=== PATIENT | female | born 1960 | race Caucasian/White ===

== ENCOUNTER 2017-05-28 17:49 | Inpatient (IN) | payer MEDICAID ==
[~2017-05-28] VITALS: Ht 160 cm; Wt 81.6 kg
[~2017-05-28 17:49] MED LIST: ASPI-1047 PO; LISI10TA5 PO; METF1000 PO; NOR10 PO
[2017-05-28 18:04] VITALS: BP_SYST 166
[2017-05-28] MEDS ORDERED: DIPHENHYDRAMINE INJ 50 MG/ML VIAL IVP ONE (18:45)
[2017-05-28] MEDS ORDERED: ONDANSETRON HCL 4 MG/2 ML VIAL IVP ONE ×2 (18:45→21:45)
[2017-05-28 19:20] LABS: HEMATOCRIT 47.9 % (36-48); HEMOGLOBIN 15.6 g/dL (12.0-16.0); MEAN CORPUSCULAR HEMOGLOBIN 28 pg (27-31); MEAN CORPUSCULAR HGB CONC 32 % (32-36); MEAN CORPUSCULAR VOLUME 86 fL (79.0-98.0); PLATELET COUNT (AUTO) 294 K/uL (130-430); RED BLOOD CELL COUNT(AUTO) 5.59 MIL/uL (4.2-6.2); RED CELL DISTRIBUTION WIDTH 12.1 % (9.0-15.0); WHITE BLOOD COUNT (AUTO) 15.2 K/uL (4.8-10.8)
[2017-05-28 19:22] LABS: ANION GAP 7 (5-15); CALCIUM 9.2 mg/dL (8.4-11.0); CHLORIDE 102 mmol/L (98-107); CREATININE 0.98 mg/dL (0.55-1.30); GLUCOSE 307 mg/dL (70-99); SODIUM SERUM 138 mmol/L (136-145); UREA NITROGEN, BLOOD 13 mg/dL (8-21)
[2017-05-28 19:25] LABS: GFR AFRICAN AMERICAN 75 mL/min (>90)
[2017-05-28 19:26] LABS: ALANINE AMINOTRANSFERASE 99 U/L (12-78); ALBUMIN 3.7 g/dL (3.4-4.8); ASPARTATE AMINOTRANSFERASE 74 U/L (10-37); LIPASE 173 U/L (73-393); TOTAL BILIRUBIN 0.9 mg/dL (0.0-1.0)
[2017-05-28 19:27] LABS: ALCOHOL, BLOOD < 3 mg/dL (<10)
[2017-05-28 19:28] LABS: INR 0.9 (0.8-1.2); PROTHROMBIN TIME 10.3 SECS (9.5-12.5)
[2017-05-28 19:53] LABS: BAND % (MANUAL) 10 % (0-6); BASOPHILS % (MANUAL) 0 % (0-2); EOSINOPHILS % (MANUAL) 4 % (0-7); LYMPHOCYTES % (MANUAL) 5 % (20-46); MONOCYTES % (MANUAL) 3 % (0-11)
[2017-05-28] MEDS ORDERED: hydrALAZINE HCL 20 MG/ML VIAL IVP ONE (21:45)
[2017-05-28] MEDS ORDERED: NACL 0.9% 1,000 ML IV ONE ×2 (21:45→23:45)
[2017-05-28] MEDS ORDERED: METOCLOPRAMIDE HCL 10 MG/2 ML VIAL IVP ONE (23:15)
[2017-05-28] MEDS ORDERED: MORPHINE 4 MG/ML INJ. SYRINGE IVP ONE (23:15)
[2017-05-28] MEDS ORDERED: CIPROFLOXACIN LACT 400 MG/D5W 200 ML IV ONE (23:45)
[2017-05-29] VITALS (7 sets, daily range): BP systolic 123–169
[2017-05-29 00:03] LABS: BILIRUBIN,URINE 1+ (NEGATIVE); BLOOD, URINE NEGATIVE (NEGATIVE); CLARITY/URINE HAZY (CLEAR); COLOR,URINE YELLOW (YELLOW); GLUCOSE,URINE 3+ (NEGATIVE); KETONES,URINE TRACE (NEGATIVE); LEUKOCYTE ESTERASE ,URINE 1+ (NEGATIVE); NITRITE, URINE NEGATIVE (NEGATIVE); PROTEIN URINE 1+ (NEGATIVE)
[2017-05-29 00:09] LABS: BACTERIA,URINE MANY /HPF (None Seen); RBC,URINE 0-3 /HPF (0-3); WBC,URINE 20-50 /HPF (0-3)
[2017-05-29 00:24] LABS: BARBITURATE, URINE NEGATIVE (NEG <=200)
[2017-05-29 00:25] LABS: METHAMPHETAMINES SCREEN,URINE POSITIVE (NEG <=500); URINE AMPHETAMINE POSITIVE (NEG <=500); URINE METHADONE NEGATIVE (NEG <=200)
[2017-05-29 00:26] LABS: BENZODIAZEPINE, URINE NEGATIVE (NEG <=150); CANNABINOID, URINE NEGATIVE (NEG <=50); COCAINE, URINE NEGATIVE (NEG <=150); OPIATE, URINE POSITIVE (NEG <=100); PHENCYCLIDINE SCREEN,URINE NEGATIVE (NEG <=25); UR TRICYCLIC ANTIDEPRESSANTS NEGATIVE (NEG <=300); URINE OXYCODONE SCREEN NEGATIVE (NEG <=100); URINE PROPOXYPHENE SCREEN NEGATIVE (NEG <=300)
[2017-05-29] MEDS ORDERED: ONDANSETRON HCL 4 MG/2 ML VIAL IVP PRN (00:30)
[2017-05-29] MEDS: NACL 0.9% 1,000 ML IV SCH ×2 (01:40→06:10)
[2017-05-29] MEDS: METOCLOPRAMIDE HCL 10 MG/2 ML VIAL IVP SCH ×4 (05:02→23:40)
[2017-05-29] MEDS: INSULIN REGULAR, HUMAN 100 UNITS/ML, 10 ML VIAL (novoLIN R) SUBCUT PRN ×4 (06:14→20:38)
[2017-05-29] MEDS: metFORMIN HCL 500 MG TABLET PO SCH ×2 (09:34→17:16)
[2017-05-29] MEDS: LISINOPRIL 10 MG TABLET (PRINIVIL) PO SCH ×2 (09:34→20:35)
[2017-05-29] MEDS: FAMOTIDINE PF 20 MG/2 ML VIAL IVP SCH ×2 (09:34→20:34)
[2017-05-29] MEDS ORDERED: cloNIDine HCL 0.2 MG TABLET PO PRN (19:30)
[2017-05-30] VITALS: BP_SYST 138
[2017-05-30 04:00] VITALS: BP_SYST 132
[2017-05-30] MEDS: METOCLOPRAMIDE HCL 10 MG/2 ML VIAL IVP SCH (05:09)
[2017-05-30] MEDS: INSULIN REGULAR, HUMAN 100 UNITS/ML, 10 ML VIAL (novoLIN R) SUBCUT PRN (06:22)
[2017-05-30 07:48] LABS: EOSINOPHILS # (AUTO) 0.1 K/uL (0.0-0.4); MEAN CORPUSCULAR HGB CONC 33 % (32-36)
[2017-05-30 08:03] VITALS: BP_SYST 138
[2017-05-30 08:07] LABS: HEMOGLOBIN 14.3 g/dL (12.0-16.0); RED BLOOD CELL COUNT(AUTO) 5.05 MIL/uL (4.2-6.2)
[2017-05-30 08:08] LABS: BASOPHILS % (AUTO) 0.2 % (0.0-2.0); EOSINOPHILS % (AUTO) 0.7 % (0.0-4.0); HEMATOCRIT 43.4 % (36-48); LYMPHOCYTES # (AUTO) 2.5 K/uL (1.0-5.5); LYMPHOCYTES % (AUTO) 20.7 % (20.5-51.5); MEAN CORPUSCULAR HEMOGLOBIN 28 pg (27-31); MEAN CORPUSCULAR VOLUME 86 fL (79.0-98.0); MONOCYTES % (AUTO) 9.1 % (1.7-9.3); NEUTROPHILS # (AUTO) 8.4 K/uL (1.8-7.7); NEUTROPHILS % (AUTO) 69.3 % (40.0-70.0); PLATELET COUNT (AUTO) 253 K/uL (130-430)
[2017-05-30 08:09] LABS: MONOCYTES # (AUTO) 1.1 K/uL (0.0-1.0); WHITE BLOOD COUNT (AUTO) 12.1 K/uL (4.8-10.8)
[2017-05-30 08:10] LABS: ALBUMIN 2.8 g/dL (3.4-4.8); CALCIUM 8.8 mg/dL (8.4-11.0); CREATININE 0.71 mg/dL (0.55-1.30); TOTAL BILIRUBIN 0.5 mg/dL (0.0-1.0)
[2017-05-30] MEDS: metFORMIN HCL 500 MG TABLET PO SCH (08:20)
[2017-05-30] MEDS: FAMOTIDINE PF 20 MG/2 ML VIAL IVP SCH (08:21)
[2017-05-30] MEDS: LISINOPRIL 10 MG TABLET (PRINIVIL) PO SCH (08:21)
== END 2017-05-30 09:43 | disposition left against medical advice (07) | DRG 463 ==
LOC: SED 17:49 → SMU 05-29 00:20
PROVIDERS: ADMIT Internal Medicine; ATTEND Internal Medicine
DX: N39.0 Urinary tract infection, site not specified (principal); I10 Essential (primary) hypertension; F12.10 Cannabis abuse, uncomplicated; Z53.21 Procedure and treatment not carried out due to patient leaving prior to being seen by health care provider; F15.10 Other stimulant abuse, uncomplicated; E11.9 Type 2 diabetes mellitus without complications; F17.210 Nicotine dependence, cigarettes, uncomplicated; E87.6 Hypokalemia; K52.9 Noninfective gastroenteritis and colitis, unspecified; F19.10 Other psychoactive substance abuse, uncomplicated; I70.90 Unspecified atherosclerosis; E66.9 Obesity, unspecified; Z68.31 Body mass index [BMI] 31.0-31.9, adult; Z90.49 Acquired absence of other specified parts of digestive tract; Z88.0 Allergy status to penicillin; Z71.6 Tobacco abuse counseling
CPT/HCPCS: 36415; 71010; 80053; 80307; 81000-TC; 82962; 83605; 83690-TC; 85007; 85025; 85027; 85610-TC; 87040-TC; 87086; 93005; 96365; 96375; 96376; 99285; G0482; J0360; J0744; J1200; J1815; J2270; J2405; J2765; J3490; J7030

== ENCOUNTER 2018-11-08 10:36 | Inpatient (IN) | payer MEDICAID ==
[~2018-11-08] VITALS: Ht 160 cm; Wt 88.0 kg
[2018-11-08 10:36] VITALS: BP_SYST 161
[~2018-11-08 10:36] MED LIST changes: -ASPI-1047 PO; -NOR10 PO
[2018-11-08] MEDS ORDERED: NACL 0.9% 1,000 ML IV ONE (10:45)
[2018-11-08] MEDS ORDERED: INSU100I26 SQ (10:55)
[2018-11-08] MEDS ORDERED: LIP20 PO (10:55)
[2018-11-08] MEDS ORDERED: CLOP300T2 PO (10:55)
[2018-11-08 11:23] LABS: CALCIUM 8.7 mg/dL (8.4-11.0); CREATININE 1.14 mg/dL (0.55-1.30)
[2018-11-08] MEDS ORDERED: hydrALAZINE HCL 20 MG/ML VIAL IVP ONE (11:30)
[2018-11-08 11:32] LABS: ALBUMIN 2.7 g/dL (3.4-4.8); TOTAL BILIRUBIN 1.2 mg/dL (0.0-1.0)
[2018-11-08 11:35] LABS: BASOPHILS # (AUTO) 0.1 K/uL (0.0-0.2); BASOPHILS % (AUTO) 0.9 % (0.0-2.0); EOSINOPHILS # (AUTO) 0.1 K/uL (0.0-0.4); EOSINOPHILS % (AUTO) 1.1 % (0.0-4.0); HEMATOCRIT 38.7 % (36-48); HEMOGLOBIN 12.3 g/dL (12.0-16.0); LYMPHOCYTES # (AUTO) 3.9 K/uL (1.0-5.5); LYMPHOCYTES % (AUTO) 31.8 % (20.5-51.5); MEAN CORPUSCULAR HEMOGLOBIN 29 pg (27-31); MEAN CORPUSCULAR HGB CONC 32 % (32-36); MEAN CORPUSCULAR VOLUME 91 fL (79.0-98.0); MONOCYTES # (AUTO) 0.8 K/uL (0.0-1.0); MONOCYTES % (AUTO) 6.7 % (1.7-9.3); NEUTROPHILS # (AUTO) 7.3 K/uL (1.8-7.7); NEUTROPHILS % (AUTO) 59.5 % (40.0-70.0); PLATELET COUNT (AUTO) 440 K/uL (130-430); RED BLOOD CELL COUNT(AUTO) 4.27 MIL/uL (4.2-6.2); RED CELL DISTRIBUTION WIDTH 15.8 % (9.0-15.0); WHITE BLOOD COUNT (AUTO) 12.2 K/uL (4.8-10.8)
[2018-11-08] MEDS ORDERED: IOHEXOL 350 mgI/mL, 150 ML INFUS..BTL IV ONE (11:42)
[2018-11-08 13:25] LABS: BILIRUBIN,URINE NEGATIVE (NEGATIVE); BLOOD, URINE 2+ (NEGATIVE); CLARITY/URINE CLOUDY (CLEAR); COLOR,URINE YELLOW (YELLOW); GLUCOSE,URINE NEGATIVE (NEGATIVE); KETONES,URINE NEGATIVE (NEGATIVE); LEUKOCYTE ESTERASE ,URINE NEGATIVE (NEGATIVE); NITRITE, URINE NEGATIVE (NEGATIVE); PH,URINE 5.5 (5.0-8.0); PROTEIN URINE NEGATIVE (NEGATIVE); UROBILINOGEN,URINE 0.2 (0.2-1.0)
[2018-11-08 13:41] VITALS: BP_SYST 150
[2018-11-08 13:50] LABS: BACTERIA,URINE MANY /HPF (None Seen); MUCUS,URINE None Seen /LPF (None Seen); WBC,URINE 0-3 /HPF (0-3); YEAST,URINE None Seen /HPF (None Seen)
[2018-11-08 13:52] LABS: BARBITURATE, URINE NEGATIVE (NEG <=200); BENZODIAZEPINE, URINE NEGATIVE (NEG <=150); COCAINE, URINE NEGATIVE (NEG <=150); METHAMPHETAMINES SCREEN,URINE NEGATIVE (NEG <=500); URINE AMPHETAMINE NEGATIVE (NEG <=500); URINE METHADONE NEGATIVE (NEG <=200)
[2018-11-08 13:53] LABS: CANNABINOID, URINE NEGATIVE (NEG <=50); OPIATE, URINE NEGATIVE (NEG <=100); PHENCYCLIDINE SCREEN,URINE NEGATIVE (NEG <=25); UR TRICYCLIC ANTIDEPRESSANTS NEGATIVE (NEG <=300); URINE OXYCODONE SCREEN NEGATIVE (NEG <=100); URINE PROPOXYPHENE SCREEN NEGATIVE (NEG <=300)
[2018-11-08] MEDS ORDERED: APIX5TAB4 PO (14:06)
[2018-11-08] MEDS ORDERED: ATORVASTATIN 20 MG TABLET PO ONE (14:15)
[2018-11-08] MEDS ORDERED: NITROGLYCERIN 0.4 MG TAB.SUBL SL PRN (14:30)
[2018-11-08] MEDS ORDERED: LevALBUTEROL HCL 1.25 MG/0.5 ML *CONC.* VIAL.NEB (XOPENEX CONC.) INH PRN (14:30)
[2018-11-08 15:12] VITALS: BP_SYST 150
[2018-11-08] MEDS: metFORMIN HCL 500 MG TABLET PO SCH (17:24)
[2018-11-08] MEDS: INSULIN REGULAR, HUMAN 100 UNITS/ML, 10 ML VIAL (novoLIN R) SUBCUT PRN ×2 (17:30→21:48)
[2018-11-08] MEDS ORDERED: FUROSEMIDE 40 MG/4 ML VIAL IVP ONE (18:45)
[2018-11-08] MEDS: LevALBUTEROL HCL 1.25 MG/0.5 ML *CONC.* VIAL.NEB (XOPENEX CONC.) INH SCH (19:39)
[2018-11-08 20:00] VITALS: BP_SYST 103
[2018-11-08] MEDS: LISINOPRIL 10 MG TABLET (PRINIVIL) PO SCH (21:00)
[2018-11-08 21:28] VITALS: BP_SYST 128
[2018-11-08] MEDS: APIXABAN 2.5 MG TABLET PO SCH (21:48)
[2018-11-08] MEDS: CARVEDILOL 12.5 MG TABLET (COREG) PO SCH (21:53)
[2018-11-09] MEDS: SPIRONOLACTONE 25 MG TABLET (ALDACTONE) PO SCH ×3 (00:19→20:32)
[2018-11-09 00:24] VITALS: BP_SYST 144
[2018-11-09] MEDS: LevALBUTEROL HCL 1.25 MG/0.5 ML *CONC.* VIAL.NEB (XOPENEX CONC.) INH SCH ×4 (01:00→19:41)
[2018-11-09 07:25] LABS: CALCIUM 8.2 mg/dL (8.4-11.0); CREATININE 1.1 mg/dL (0.55-1.30); POTASSIUM 3.5 mmol/L (3.5-5.1)
[2018-11-09 07:36] LABS: BASOPHILS # (AUTO) 0.1 K/uL (0.0-0.2); EOSINOPHILS # (AUTO) 0.3 K/uL (0.0-0.4); EOSINOPHILS % (AUTO) 2.7 % (0.0-4.0); HEMATOCRIT 35.9 % (36-48); HEMOGLOBIN 11.6 g/dL (12.0-16.0); LYMPHOCYTES # (AUTO) 2.9 K/uL (1.0-5.5); LYMPHOCYTES % (AUTO) 26.3 % (20.5-51.5); MEAN CORPUSCULAR HEMOGLOBIN 29 pg (27-31); MEAN CORPUSCULAR HGB CONC 32 % (32-36); MEAN CORPUSCULAR VOLUME 91 fL (79.0-98.0); MONOCYTES # (AUTO) 0.8 K/uL (0.0-1.0); MONOCYTES % (AUTO) 7.6 % (1.7-9.3); NEUTROPHILS % (AUTO) 62.4 % (40.0-70.0); PLATELET COUNT (AUTO) 382 K/uL (130-430); RED BLOOD CELL COUNT(AUTO) 3.97 MIL/uL (4.2-6.2); RED CELL DISTRIBUTION WIDTH 15.6 % (9.0-15.0); WHITE BLOOD COUNT (AUTO) 11.1 K/uL (4.8-10.8)
[2018-11-09 07:43] LABS: ALBUMIN 2.5 g/dL (3.4-4.8); THYROID STIMULATING HORMONE 5.2 uIu/mL (0.36-3.74); TOTAL BILIRUBIN 0.9 mg/dL (0.0-1.0)
[2018-11-09 08:00] VITALS: BP_SYST 140
[2018-11-09 08:19] LABS: CKMB RELATIVE INDEX 0.6 (0.0-2.9)
[2018-11-09] MEDS ORDERED: POTASSIUM CHLORIDE 10 MEQ TAB.PRT.SR PO SCH (09:00)
[2018-11-09] MEDS: CLOPIDOGREL BISULFATE 75 MG TABLET PO SCH (09:07)
[2018-11-09] MEDS: metFORMIN HCL 500 MG TABLET PO SCH ×2 (09:08→18:02)
[2018-11-09] MEDS: ATORVASTATIN 20 MG TABLET PO SCH (09:08)
[2018-11-09] MEDS: LISINOPRIL 10 MG TABLET (PRINIVIL) PO SCH ×2 (09:09→20:32)
[2018-11-09] MEDS: APIXABAN 2.5 MG TABLET PO SCH ×2 (09:11→20:30)
[2018-11-09] MEDS: CARVEDILOL 12.5 MG TABLET (COREG) PO SCH ×2 (09:12→20:32)
[2018-11-09] MEDS: FUROSEMIDE 40 MG/4 ML VIAL IVP SCH ×2 (09:13→20:33)
[2018-11-09] MEDS: INSULIN REGULAR, HUMAN 100 UNITS/ML, 10 ML VIAL (novoLIN R) SUBCUT PRN (11:14)
[2018-11-09 13:45] VITALS: BP_SYST 145
[2018-11-09 16:38] VITALS: BP_SYST 102
[2018-11-09 20:10] VITALS: BP_SYST 110
[2018-11-09] MEDS ORDERED: ACETAMINOPHEN 325 MG TABLET PO PRN (20:45)
[2018-11-10] MEDS: LevALBUTEROL HCL 1.25 MG/0.5 ML *CONC.* VIAL.NEB (XOPENEX CONC.) INH SCH ×4 (01:00→19:44)
[2018-11-10 01:39] VITALS: BP_SYST 134
[2018-11-10 06:53] LABS: ALBUMIN 2.6 g/dL (3.4-4.8); CALCIUM 8.2 mg/dL (8.4-11.0); POTASSIUM 3.1 mmol/L (3.5-5.1); TOTAL BILIRUBIN 0.8 mg/dL (0.0-1.0)
[2018-11-10 08:00] VITALS: BP_SYST 123
[2018-11-10] MEDS: LISINOPRIL 10 MG TABLET (PRINIVIL) PO SCH ×2 (09:53→22:38)
[2018-11-10] MEDS: ATORVASTATIN 20 MG TABLET PO SCH (09:53)
[2018-11-10] MEDS: APIXABAN 2.5 MG TABLET PO SCH ×2 (09:54→22:41)
[2018-11-10] MEDS: CARVEDILOL 12.5 MG TABLET (COREG) PO SCH ×2 (09:55→22:38)
[2018-11-10] MEDS: metFORMIN HCL 500 MG TABLET PO SCH ×2 (09:55→18:15)
[2018-11-10] MEDS: CLOPIDOGREL BISULFATE 75 MG TABLET PO SCH (09:55)
[2018-11-10] MEDS: SPIRONOLACTONE 25 MG TABLET (ALDACTONE) PO SCH ×2 (09:56→22:37)
[2018-11-10] MEDS: FUROSEMIDE 40 MG/4 ML VIAL IVP SCH ×2 (09:57→22:42)
[2018-11-10] MEDS ORDERED: POTASSIUM CHLORIDE 20 MEQ/PKT PACKET PO ONE (10:00)
[2018-11-10] MEDS: INSULIN REGULAR, HUMAN 100 UNITS/ML, 10 ML VIAL (novoLIN R) SUBCUT PRN (11:42)
[2018-11-10 12:49] VITALS: BP_SYST 117
[2018-11-10 16:37] VITALS: BP_SYST 144
[2018-11-10 20:00] VITALS: BP_SYST 142
[2018-11-10] MEDS: POTASSIUM CHLORIDE 20 MEQ/PKT PACKET PO SCH (22:39)
[2018-11-11] MEDS: LevALBUTEROL HCL 1.25 MG/0.5 ML *CONC.* VIAL.NEB (XOPENEX CONC.) INH SCH ×3 (01:00→14:19)
[2018-11-11] MEDS: INSULIN REGULAR, HUMAN 100 UNITS/ML, 10 ML VIAL (novoLIN R) SUBCUT PRN (06:23)
[2018-11-11 06:45] LABS: CALCIUM 8.4 mg/dL (8.4-11.0); CREATININE 1.2 mg/dL (0.55-1.30); POTASSIUM 3.1 mmol/L (3.5-5.1)
[2018-11-11 06:52] LABS: ALBUMIN 2.6 g/dL (3.4-4.8); TOTAL BILIRUBIN 0.9 mg/dL (0.0-1.0)
[2018-11-11 08:00] VITALS: BP_SYST 118
[2018-11-11] MEDS: POTASSIUM CHLORIDE 20 MEQ/PKT PACKET PO SCH (08:22)
[2018-11-11] MEDS: metFORMIN HCL 500 MG TABLET PO SCH (08:23)
[2018-11-11] MEDS: APIXABAN 2.5 MG TABLET PO SCH (08:24)
[2018-11-11] MEDS: ATORVASTATIN 20 MG TABLET PO SCH (08:24)
[2018-11-11] MEDS: LISINOPRIL 10 MG TABLET (PRINIVIL) PO SCH (08:24)
[2018-11-11] MEDS: CARVEDILOL 12.5 MG TABLET (COREG) PO SCH (08:25)
[2018-11-11] MEDS: CLOPIDOGREL BISULFATE 75 MG TABLET PO SCH (08:25)
[2018-11-11] MEDS: FUROSEMIDE 40 MG/4 ML VIAL IVP SCH (08:25)
[2018-11-11] MEDS: SPIRONOLACTONE 25 MG TABLET (ALDACTONE) PO SCH (08:25)
[2018-11-11] MEDS ORDERED: METOLAZONE 2.5 MG TABLET PO ONE (10:30)
[2018-11-11 12:02] VITALS: BP_SYST 122
[2018-11-11 16:02] VITALS: BP_SYST 128
[2018-11-11] MEDS ORDERED: SPIRONOLACTONE 25 MG TABLET (ALDACTONE) PO SCH (21:00)
[2018-11-11] MEDS ORDERED: POTASSIUM CHLORIDE 20 MEQ/PKT PACKET PO SCH (21:00)
== END 2018-11-11 16:30 | disposition left against medical advice (07) | DRG 194 ==
LOC: SED 10:36 → STU 12:57
PROVIDERS: ADMIT Family Medicine; ATTEND Family Medicine
DX: I11.0 Hypertensive heart disease with heart failure (principal); E43 Unspecified severe protein-calorie malnutrition; I27.20 Pulmonary hypertension, unspecified; I82.621 Acute embolism and thrombosis of deep veins of right upper extremity; J44.1 Chronic obstructive pulmonary disease with (acute) exacerbation; I82.A11 Acute embolism and thrombosis of right axillary vein; I42.9 Cardiomyopathy, unspecified; I08.1 Rheumatic disorders of both mitral and tricuspid valves; I50.43 Acute on chronic combined systolic (congestive) and diastolic (congestive) heart failure; E11.9 Type 2 diabetes mellitus without complications; F17.200 Nicotine dependence, unspecified, uncomplicated; R74.0 Nonspecific elevation of levels of transaminase and lactic acid dehydrogenase [LDH]; Z53.21 Procedure and treatment not carried out due to patient leaving prior to being seen by health care provider; I25.10 Atherosclerotic heart disease of native coronary artery without angina pectoris; I25.2 Old myocardial infarction; Z79.4 Long term (current) use of insulin; Z95.810 Presence of automatic (implantable) cardiac defibrillator; Z82.0 Family history of epilepsy and other diseases of the nervous system; Z83.3 Family history of diabetes mellitus; Z88.0 Allergy status to penicillin
CPT/HCPCS: 36415; 71045; 71275; 80053; 80061; 80307; 81000-TC; 82550-TC; 82553-TC; 82962; 83735-TC; 83880; 84443-TC; 84484; 85025; 87081; 93005; 93306; 94640; 94664; 94760; 96361; 96374; 99285; G0378; J0360; J1815; J1940; J7612; Q9967

== ENCOUNTER 2018-12-27 15:50 | Emergency (ER) | payer MEDICAID ==
[~2018-12-27] VITALS: Ht 157.5 cm; Wt 77.1 kg
[2018-12-27 15:50] VITALS: BP_SYST 140
[~2018-12-27 15:50] MED LIST changes: +APIX5TAB4 PO; +CLOP300T2 PO; +INSU100I26 SQ; +LIP20 PO
[2018-12-28] MEDS ORDERED: CLIN300C11 PO (11:27)
[2018-12-28] MEDS ORDERED: APIX5TAB PO (11:27)
[2018-12-28] MEDS ORDERED: GABA-529 PO (11:27)
[2018-12-28] MEDS ORDERED: TRAM50TA2 PO (11:27)
[2018-12-28] MEDS ORDERED: CARV3.1246 PO (11:27)
== END 2018-12-27 16:40 | disposition left against medical advice (07) ==
LOC: SED 15:50
DX: L03.115 Cellulitis of right lower limb (principal); L03.116 Cellulitis of left lower limb; Z53.21 Procedure and treatment not carried out due to patient leaving prior to being seen by health care provider
CPT/HCPCS: J7030

== ENCOUNTER 2018-12-28 10:29 | Emergency (ER) | payer MEDICAID ==
[~2018-12-28] VITALS: Ht 160 cm; Wt 77.1 kg
[2018-12-28 10:30] VITALS: BP_SYST 139
[2018-12-28] MEDS ORDERED: NACL 0.9% 1,000 ML IV ONE (10:45)
[2018-12-28] MEDS ORDERED: APIX5TAB PO (11:27)
[2018-12-28] MEDS ORDERED: TRAM50TA2 PO (11:27)
[2018-12-28] MEDS ORDERED: GABA-529 PO (11:27)
[2018-12-28] MEDS ORDERED: CARV3.1246 PO (11:27)
[2018-12-28] MEDS ORDERED: CLIN300C11 PO (11:27)
[2018-12-28 11:39] LABS: CALCIUM 9.4 mg/dL (8.4-11.0); CREATININE 1.14 mg/dL (0.55-1.30); POTASSIUM 3.5 mmol/L (3.5-5.1)
[2018-12-28 11:40] LABS: LYMPHOCYTES % (AUTO) 22.2 % (20.5-51.5); MEAN CORPUSCULAR HEMOGLOBIN 27 pg (27-31); MEAN CORPUSCULAR HGB CONC 32 % (32-36); MEAN CORPUSCULAR VOLUME 86 fL (79.0-98.0); PLATELET COUNT (AUTO) 298 K/uL (130-430); RED BLOOD CELL COUNT(AUTO) 4.79 MIL/uL (4.2-6.2); WHITE BLOOD COUNT (AUTO) 7.8 K/uL (4.8-10.8)
[2018-12-28 11:41] LABS: BASOPHILS % (AUTO) 0.6 % (0.0-2.0); EOSINOPHILS # (AUTO) 0.2 K/uL (0.0-0.4); EOSINOPHILS % (AUTO) 2.5 % (0.0-4.0); LYMPHOCYTES # (AUTO) 1.7 K/uL (1.0-5.5); MONOCYTES # (AUTO) 0.7 K/uL (0.0-1.0); NEUTROPHILS # (AUTO) 5.2 K/uL (1.8-7.7); NEUTROPHILS % (AUTO) 65.7 % (40.0-70.0)
[2018-12-28 11:44] LABS: ALBUMIN 3.2 g/dL (3.4-4.8); TOTAL BILIRUBIN 1.2 mg/dL (0.0-1.0)
[2018-12-28 12:57] LABS: BILIRUBIN,URINE NEGATIVE (NEGATIVE); BLOOD, URINE NEGATIVE (NEGATIVE); CLARITY/URINE CLEAR (CLEAR); COLOR,URINE YELLOW (YELLOW); GLUCOSE,URINE NEGATIVE (NEGATIVE); KETONES,URINE NEGATIVE (NEGATIVE); LEUKOCYTE ESTERASE ,URINE TRACE (NEGATIVE); NITRITE, URINE NEGATIVE (NEGATIVE); PROTEIN URINE NEGATIVE (NEGATIVE); UROBILINOGEN,URINE 0.2 (0.2-1.0)
[2018-12-28 13:10] LABS: BACTERIA,URINE FEW /HPF (None Seen); HYALINE CASTS, URINE 0-10 /LPF (None Seen); RBC,URINE 0-3 /HPF (0-3)
[2018-12-28 16:44] VITALS: BP_SYST 158
== END 2018-12-28 16:43 ==
LOC: SED 10:29
DX: L03.115 Cellulitis of right lower limb (principal); L03.116 Cellulitis of left lower limb; J44.9 Chronic obstructive pulmonary disease, unspecified; E11.9 Type 2 diabetes mellitus without complications; I10 Essential (primary) hypertension; Z86.79 Personal history of other diseases of the circulatory system; Z95.0 Presence of cardiac pacemaker; Z88.0 Allergy status to penicillin; Z79.899 Other long term (current) drug therapy
CPT/HCPCS: 36415; 80053; 81000; 82962; 83605; 85025; 87040; 87086; 96365; 99283; J1956; J7030

== ENCOUNTER 2019-02-01 12:11 | Inpatient (IN) | payer MEDICAID ==
[~2019-02-01] VITALS: Ht 160 cm; Wt 72.6 kg
[~2019-02-01 12:11] MED LIST changes: +APIX5TAB PO; +CARV3.1246 PO; +CLIN300C11 PO; +GABA-529 PO; +TRAM50TA2 PO
[2019-02-01 12:19] VITALS: BP_SYST 196
[2019-02-01] MEDS ORDERED: MAGNESIUM SULFATE 50 ML IV ONE (12:30)
[2019-02-01] MEDS ORDERED: methylPREDNISolone SOD SUCC/PF 62.5 MG/ML VIAL IVP ONE (12:30)
[2019-02-01] MEDS ORDERED: IPRATROPIUM/ALBUTEROL SULFATE 3 ML AMPUL.NEB (DUONEB) INH ONE (12:30)
[2019-02-01] MEDS ORDERED: NACL 0.9% 1,000 ML IV ONE (12:30)
[2019-02-01 12:47] LABS: BASOPHILS # (AUTO) 0.1 K/uL (0.0-0.2); BASOPHILS % (AUTO) 1.3 % (0.0-2.0); EOSINOPHILS # (AUTO) 0.1 K/uL (0.0-0.4); EOSINOPHILS % (AUTO) 0.8 % (0.0-4.0); HEMATOCRIT 41.9 % (36-48); HEMOGLOBIN 13.5 g/dL (12.0-16.0); LYMPHOCYTES # (AUTO) 3.3 K/uL (1.0-5.5); LYMPHOCYTES % (AUTO) 39.8 % (20.5-51.5); MEAN CORPUSCULAR HEMOGLOBIN 27 pg (27-31); MEAN CORPUSCULAR HGB CONC 32 % (32-36); MEAN CORPUSCULAR VOLUME 84 fL (79.0-98.0); MONOCYTES # (AUTO) 0.6 K/uL (0.0-1.0); NEUTROPHILS # (AUTO) 4.2 K/uL (1.8-7.7); NEUTROPHILS % (AUTO) 51.1 % (40.0-70.0); PLATELET COUNT (AUTO) 305 K/uL (130-430); RED BLOOD CELL COUNT(AUTO) 4.97 MIL/uL (4.2-6.2); RED CELL DISTRIBUTION WIDTH 19.2 % (9.0-15.0); WHITE BLOOD COUNT (AUTO) 8.2 K/uL (4.8-10.8)
[2019-02-01] MEDS ORDERED: AZITHROMYCIN 500 MG in NS 250 ML IV ONE (13:30)
[2019-02-01 13:59] LABS: INR 1.1 (0.8-1.2); PROTHROMBIN TIME 11.3 SECS (9.5-12.5)
[2019-02-01 14:04] LABS: POTASSIUM 3.2 mmol/L (3.5-5.1)
[2019-02-01 14:05] LABS: CALCIUM 9.4 mg/dL (8.4-11.0); CREATININE 0.84 mg/dL (0.55-1.30)
[2019-02-01 14:06] LABS: ALBUMIN 3.2 g/dL (3.4-4.8); TOTAL BILIRUBIN 1.3 mg/dL (0.0-1.0)
[2019-02-01] MEDS ORDERED: AZITHROMYCIN 500 MG/VIAL (ZITHROMAX) IV ONE (14:17)
[2019-02-01 14:42] LABS: BILIRUBIN,URINE NEGATIVE (NEGATIVE); BLOOD, URINE NEGATIVE (NEGATIVE); CLARITY/URINE CLEAR (CLEAR); COLOR,URINE YELLOW (YELLOW); GLUCOSE,URINE NEGATIVE (NEGATIVE); KETONES,URINE 1+ (NEGATIVE); LEUKOCYTE ESTERASE ,URINE 1+ (NEGATIVE); NITRITE, URINE NEGATIVE (NEGATIVE); PROTEIN URINE TRACE (NEGATIVE)
[2019-02-01 14:49] LABS: BACTERIA,URINE FEW /HPF (None Seen); RBC,URINE 0-3 /HPF (0-3)
[2019-02-01 16:00] VITALS: BP_SYST 140
[2019-02-01] MEDS ORDERED: ACETAMINOPHEN 650 MG/20.3 ML UDC PO PRN (17:45)
[2019-02-01] MEDS ORDERED: traMADol HCL HCL 50 MG TABLET (ULTRAM) PO PRN ×2 (17:45→18:15)
[2019-02-01] MEDS: traMADol HCL HCL 50 MG TABLET (ULTRAM) PO PRN (17:50)
[2019-02-01] MEDS ORDERED: DEXTROSE 50% JECT 50 ML DISP.SYRIN IVP PRN (18:15)
[2019-02-01] MEDS ORDERED: GABAPENTIN 100 MG CAPSULE PO SCH (18:15)
[2019-02-01] MEDS ORDERED: FUROSEMIDE 20 MG/2 ML VIAL IVP ONE (18:15)
[2019-02-01] MEDS ORDERED: POTASSIUM CHLORIDE 20 MEQ/PKT PACKET PO ONE (18:15)
[2019-02-01 20:00] VITALS: BP_SYST 156
[2019-02-01] MEDS: INSULIN REGULAR, HUMAN 100 UNITS/ML, 10 ML VIAL (novoLIN R) SUBCUT PRN (20:27)
[2019-02-01] MEDS: POTASSIUM CHLORIDE 20 MEQ/PKT PACKET PO SCH (20:30)
[2019-02-01] MEDS: CARVEDILOL 3.125 MG TABLET (COREG) PO SCH (20:30)
[2019-02-01] MEDS: INSULIN GLARGINE 100 UNITS/ML 10 ML VIAL SQ SCH (20:30)
[2019-02-01] MEDS: LISINOPRIL 10 MG TABLET (PRINIVIL) PO SCH (20:31)
[2019-02-01] MEDS ORDERED: NON-FORMULARY MEDICATION (Apixaban (Eliquis) 5 MG) PO SCH (21:00)
[2019-02-01] MEDS: CLINDAMYCIN HCL 150 MG CAPSULE PO SCH (21:57)
[2019-02-02 00:58] VITALS: BP_SYST 109
[2019-02-02] MEDS: INSULIN REGULAR, HUMAN 100 UNITS/ML, 10 ML VIAL (novoLIN R) SUBCUT PRN (06:04)
[2019-02-02] MEDS: CLINDAMYCIN HCL 150 MG CAPSULE PO SCH (06:07)
[2019-02-02 06:24] LABS: BASOPHILS % (AUTO) 0.4 % (0.0-2.0); HEMATOCRIT 43.3 % (36-48); HEMOGLOBIN 13.6 g/dL (12.0-16.0); LYMPHOCYTES # (AUTO) 1.6 K/uL (1.0-5.5); LYMPHOCYTES % (AUTO) 19.7 % (20.5-51.5); MEAN CORPUSCULAR HEMOGLOBIN 27 pg (27-31); MEAN CORPUSCULAR HGB CONC 31 % (32-36); MEAN CORPUSCULAR VOLUME 85 fL (79.0-98.0); MONOCYTES # (AUTO) 0.8 K/uL (0.0-1.0); MONOCYTES % (AUTO) 9.6 % (1.7-9.3); NEUTROPHILS # (AUTO) 5.7 K/uL (1.8-7.7); NEUTROPHILS % (AUTO) 70.3 % (40.0-70.0); PLATELET COUNT (AUTO) 257 K/uL (130-430); RED BLOOD CELL COUNT(AUTO) 5.07 MIL/uL (4.2-6.2); RED CELL DISTRIBUTION WIDTH 18.8 % (9.0-15.0); WHITE BLOOD COUNT (AUTO) 8.2 K/uL (4.8-10.8)
[2019-02-02 06:50] LABS: CALCIUM 9.2 mg/dL (8.4-11.0); CREATININE 0.96 mg/dL (0.55-1.30); POTASSIUM 4.7 mmol/L (3.5-5.1)
[2019-02-02 06:56] LABS: TOTAL BILIRUBIN 0.9 mg/dL (0.0-1.0)
[2019-02-02 08:01] VITALS: BP_SYST 127
[2019-02-02] MEDS: FUROSEMIDE 20 MG/2 ML VIAL IVP SCH ×2 (08:18→21:00)
[2019-02-02] MEDS: LISINOPRIL 10 MG TABLET (PRINIVIL) PO SCH ×2 (08:18→22:05)
[2019-02-02] MEDS: POTASSIUM CHLORIDE 20 MEQ/PKT PACKET PO SCH (08:19)
[2019-02-02] MEDS: CARVEDILOL 3.125 MG TABLET (COREG) PO SCH (08:19)
[2019-02-02] MEDS: ATORVASTATIN 20 MG TABLET PO SCH (08:19)
[2019-02-02] MEDS: metFORMIN HCL 500 MG TABLET PO SCH ×2 (08:19→16:59)
[2019-02-02] MEDS ORDERED: CLOPIDOGREL BISULFATE 75 MG TABLET PO SCH (09:00)
[2019-02-02] MEDS ORDERED: POTASSIUM CHLORIDE 20 MEQ TAB.PRT.SR PO SCH (09:00)
[2019-02-02] MEDS ORDERED: POTASSIUM CHLORIDE 20 MEQ/PKT PACKET PO SCH (09:00)
[2019-02-02 12:00] VITALS: BP_SYST 123
[2019-02-02 16:00] VITALS: BP_SYST 141
[2019-02-02 16:05] VITALS: BP_SYST 141
[2019-02-02 19:45] VITALS: BP_SYST 138
[2019-02-02] MEDS: LevALBUTEROL HCL 1.25 MG/0.5 ML *CONC.* VIAL.NEB (XOPENEX CONC.) INH SCH (20:49)
[2019-02-02] MEDS: IPRATROPIUM BROM 0.5 MG/2.5 ML VIAL.NEB (ATROVENT) INH SCH (20:49)
[2019-02-02] MEDS: INSULIN GLARGINE 100 UNITS/ML 10 ML VIAL SQ SCH (21:00)
[2019-02-02] MEDS: POTASSIUM CHLORIDE 20 MEQ TAB.PRT.SR PO SCH (22:05)
[2019-02-02] MEDS: APIXABAN 2.5 MG TABLET PO SCH (22:09)
[2019-02-02] MEDS: CARVEDILOL 12.5 MG TABLET (COREG) PO SCH (22:14)
[2019-02-02] MEDS: ONDANSETRON HCL 4 MG/2 ML VIAL IVP PRN (23:07)
[2019-02-03 00:35] VITALS: BP_SYST 117
[2019-02-03 06:28] LABS: CALCIUM 9.4 mg/dL (8.4-11.0); CREATININE 0.99 mg/dL (0.55-1.30)
[2019-02-03 06:30] LABS: BASOPHILS % (AUTO) 0.5 % (0.0-2.0); EOSINOPHILS # (AUTO) 0.1 K/uL (0.0-0.4); EOSINOPHILS % (AUTO) 1.1 % (0.0-4.0); HEMATOCRIT 39.9 % (36-48); HEMOGLOBIN 12.7 g/dL (12.0-16.0); LYMPHOCYTES % (AUTO) 43.1 % (20.5-51.5); MEAN CORPUSCULAR HEMOGLOBIN 27 pg (27-31); MEAN CORPUSCULAR HGB CONC 32 % (32-36); MEAN CORPUSCULAR VOLUME 85 fL (79.0-98.0); MONOCYTES # (AUTO) 0.7 K/uL (0.0-1.0); MONOCYTES % (AUTO) 7.8 % (1.7-9.3); NEUTROPHILS # (AUTO) 4.4 K/uL (1.8-7.7); NEUTROPHILS % (AUTO) 47.5 % (40.0-70.0); PLATELET COUNT (AUTO) 228 K/uL (130-430); RED BLOOD CELL COUNT(AUTO) 4.68 MIL/uL (4.2-6.2); WHITE BLOOD COUNT (AUTO) 9.3 K/uL (4.8-10.8)
[2019-02-03 06:43] LABS: ALBUMIN 2.8 g/dL (3.4-4.8); THYROID STIMULATING HORMONE 4.73 uIu/mL (0.36-3.74); TOTAL BILIRUBIN 0.8 mg/dL (0.0-1.0)
[2019-02-03] MEDS: LevALBUTEROL HCL 1.25 MG/0.5 ML *CONC.* VIAL.NEB (XOPENEX CONC.) INH SCH ×3 (07:00→20:00)
[2019-02-03] MEDS: IPRATROPIUM BROM 0.5 MG/2.5 ML VIAL.NEB (ATROVENT) INH SCH ×3 (07:00→20:00)
[2019-02-03 08:00] VITALS: BP_SYST 148
[2019-02-03] MEDS: metFORMIN HCL 500 MG TABLET PO SCH ×2 (08:33→17:58)
[2019-02-03] MEDS: FUROSEMIDE 40 MG TABLET PO SCH ×2 (08:34→21:39)
[2019-02-03] MEDS: CARVEDILOL 12.5 MG TABLET (COREG) PO SCH ×2 (08:35→21:38)
[2019-02-03] MEDS: LISINOPRIL 10 MG TABLET (PRINIVIL) PO SCH ×2 (08:36→21:37)
[2019-02-03] MEDS: ATORVASTATIN 20 MG TABLET PO SCH (08:36)
[2019-02-03] MEDS: POTASSIUM CHLORIDE 20 MEQ TAB.PRT.SR PO SCH ×2 (08:36→21:38)
[2019-02-03] MEDS: APIXABAN 2.5 MG TABLET PO SCH ×2 (08:39→21:41)
[2019-02-03 12:00] VITALS: BP_SYST 125
[2019-02-03 16:00] VITALS: BP_SYST 120
[2019-02-03] MEDS: traMADol HCL HCL 50 MG TABLET (ULTRAM) PO PRN ×2 (18:03→23:02)
[2019-02-03 20:00] VITALS: BP_SYST 129
[2019-02-03] MEDS: INSULIN GLARGINE 100 UNITS/ML 10 ML VIAL SQ SCH (21:54)
[2019-02-04 00:34] VITALS: BP_SYST 91
[2019-02-04] MEDS ORDERED: LEVOTHYROXINE SODIUM 0.025 MG TABLET PO SCH (07:00)
[2019-02-04] MEDS: LevALBUTEROL HCL 1.25 MG/0.5 ML *CONC.* VIAL.NEB (XOPENEX CONC.) INH SCH (07:54)
[2019-02-04] MEDS: IPRATROPIUM BROM 0.5 MG/2.5 ML VIAL.NEB (ATROVENT) INH SCH (07:54)
[2019-02-04] MEDS: metFORMIN HCL 500 MG TABLET PO SCH (08:27)
[2019-02-04] MEDS: ATORVASTATIN 20 MG TABLET PO SCH (08:27)
[2019-02-04] MEDS: CARVEDILOL 12.5 MG TABLET (COREG) PO SCH (08:28)
[2019-02-04] MEDS: POTASSIUM CHLORIDE 20 MEQ TAB.PRT.SR PO SCH (08:28)
[2019-02-04] MEDS: FUROSEMIDE 40 MG TABLET PO SCH (08:29)
[2019-02-04] MEDS: APIXABAN 2.5 MG TABLET PO SCH (08:29)
[2019-02-04] MEDS: LISINOPRIL 10 MG TABLET (PRINIVIL) PO SCH (08:30)
[2019-02-04] MEDS: ONDANSETRON HCL 4 MG/2 ML VIAL IVP PRN (08:30)
[2019-02-04 08:32] VITALS: BP_SYST 100
[2019-02-04] MEDS ORDERED: POTA20TA83 PO (12:13)
[2019-02-04] MEDS ORDERED: FURO-149 PO (12:13)
[2019-02-04] MEDS ORDERED: LEVO25TA2 PO (12:13)
[2019-02-04 12:16] VITALS: BP_SYST 111
[2019-02-04 13:10] VITALS: BP_SYST 111
== END 2019-02-04 13:35 | disposition home health service (06) | DRG 194 ==
LOC: SED 12:11 → STU 14:15 → SMU 02-02 14:49
PROVIDERS: ADMIT Internal Medicine; ATTEND Internal Medicine
DX: I11.0 Hypertensive heart disease with heart failure (principal); D68.59 Other primary thrombophilia; I82.621 Acute embolism and thrombosis of deep veins of right upper extremity; Z79.01 Long term (current) use of anticoagulants; J44.1 Chronic obstructive pulmonary disease with (acute) exacerbation; I50.43 Acute on chronic combined systolic (congestive) and diastolic (congestive) heart failure; E87.6 Hypokalemia; E11.9 Type 2 diabetes mellitus without complications; I25.10 Atherosclerotic heart disease of native coronary artery without angina pectoris; I25.5 Ischemic cardiomyopathy; I34.0 Nonrheumatic mitral (valve) insufficiency; J98.11 Atelectasis; F12.90 Cannabis use, unspecified, uncomplicated; E78.5 Hyperlipidemia, unspecified; Z88.0 Allergy status to penicillin; Z79.899 Other long term (current) drug therapy; Z86.718 Personal history of other venous thrombosis and embolism; Z95.810 Presence of automatic (implantable) cardiac defibrillator; Z79.84 Long term (current) use of oral hypoglycemic drugs; Z79.4 Long term (current) use of insulin; Z82.49 Family history of ischemic heart disease and other diseases of the circulatory system; Z87.891 Personal history of nicotine dependence; I25.2 Old myocardial infarction; Z91.14 Patient's other noncompliance with medication regimen; Z82.0 Family history of epilepsy and other diseases of the nervous system; Z83.3 Family history of diabetes mellitus; Z95.5 Presence of coronary angioplasty implant and graft; Z81.8 Family history of other mental and behavioral disorders; E66.9 Obesity, unspecified; Z68.28 Body mass index [BMI] 28.0-28.9, adult
CPT/HCPCS: 36415; 36600; 71045; 80053; 81000-TC; 82803-TC; 82962; 83605; 83735-TC; 83880; 84443-TC; 84484; 85025; 85610-TC; 85730-TC; 86710; 87040-TC; 87086; 93005; 94640; 94760; 96365; 96366; 99285; G0378; J0456; J1815; J1940; J2405; J2930; J3475; J7612; J7620

== ENCOUNTER 2020-01-20 16:40 | Inpatient (IN) | payer MEDICAID ==
[~2020-01-20] VITALS: Ht 160 cm; Wt 83.0 kg
[~2020-01-20 16:40] MED LIST changes: -APIX5TAB PO; -APIX5TAB4 PO; -CLOP300T2 PO; +FURO-149 PO; +LEVO25TA2 PO; +POTA20TA83 PO; -TRAM50TA2 PO
[2020-01-20 16:49] VITALS: BP_SYST 130
[2020-01-20] MEDS ORDERED: VANCOMYCIN HCL 1,000 MG in NS 250 ML IV ONE (17:00)
[2020-01-20] MEDS ORDERED: cefTRIAXone 1 GM VIAL IM ONE (17:00)
[2020-01-20] MEDS ORDERED: NACL 0.9% 1,000 ML IV ONE (17:00)
[2020-01-20] MEDS ORDERED: cefTRIAXone 1 GM in D5W 50 ML IV ONE (17:15)
[2020-01-20 17:25] LABS: BASOPHILS # (AUTO) 0.1 K/uL (0.0-0.2); BASOPHILS % (AUTO) 1.4 % (0.0-2.0); EOSINOPHILS # (AUTO) 0.3 K/uL (0.0-0.4); EOSINOPHILS % (AUTO) 2.9 % (0.0-4.0); HEMATOCRIT 40.1 % (36-48); HEMOGLOBIN 12.6 g/dL (12.0-16.0); LYMPHOCYTES # (AUTO) 2.2 K/uL (1.0-5.5); LYMPHOCYTES % (AUTO) 24.5 % (20.5-51.5); MEAN CORPUSCULAR HEMOGLOBIN 26 pg (27-31); MEAN CORPUSCULAR HGB CONC 32 % (32-36); MEAN CORPUSCULAR VOLUME 83 fL (79.0-98.0); MONOCYTES # (AUTO) 1.1 K/uL (0.0-1.0); MONOCYTES % (AUTO) 12.1 % (1.7-9.3); NEUTROPHILS # (AUTO) 5.3 K/uL (1.8-7.7); NEUTROPHILS % (AUTO) 59.1 % (40.0-70.0); PLATELET COUNT (AUTO) 197 K/uL (130-430); RED BLOOD CELL COUNT(AUTO) 4.85 MIL/uL (4.2-6.2); RED CELL DISTRIBUTION WIDTH 17.3 % (9.0-15.0)
[2020-01-20 17:42] LABS: CALCIUM 8.1 mg/dL (8.4-11.0); CREATININE 1.43 mg/dL (0.55-1.30); POTASSIUM 3.6 mmol/L (3.5-5.1)
[2020-01-20 17:46] LABS: ALBUMIN 2.7 g/dL (3.4-4.8); C-REACTIVE PROTEIN QUANT 3.8 mg/dL (0-0.5); TOTAL BILIRUBIN 0.8 mg/dL (0.0-1.0)
[2020-01-20] MEDS ORDERED: CLIN300C11 PO (17:49)
[2020-01-20] MEDS ORDERED: IBUP-2604 PO (17:49)
[2020-01-20] MEDS ORDERED: FURO-149 PO (17:49)
[2020-01-20] MEDS ORDERED: PREG75CA PO (17:49)
[2020-01-20] MEDS ORDERED: VANCOMYCIN HCL 1000 MG/VIAL IV ONE (18:11)
[2020-01-20 18:13] LABS: ERYTHROCYTE SEDIMENTATION RATE 8 MM/HR (0-20)
[2020-01-20 20:00] VITALS: BP_SYST 138
[2020-01-20 20:15] VITALS: BP_SYST 138
[2020-01-20] MEDS ORDERED: ONDANSETRON HCL 4 MG/2 ML VIAL IVP PRN (22:00)
[2020-01-20] MEDS ORDERED: ALBUTEROL SULFATE 0.083% 2.5 MG/3 ML VIAL.NEB INH PRN (22:00)
[2020-01-20 22:07] VITALS: BP_SYST 130
[2020-01-20] MEDS: HYDROcodone/ACETAMIN 5-325 MG TAB (NORCO/ VICODIN) PO PRN (22:24)
[2020-01-20] MEDS ORDERED: LEVOFLOXACIN 500 MG/D5W 100 ML IV ONE (22:30)
[2020-01-20 23:32] VITALS: BP_SYST 145
[2020-01-21] MEDS ORDERED: LEVOFLOXACIN 500 MG/D5W 100 ML IV ONE (00:33)
[2020-01-21 06:18] LABS: BASOPHILS # (AUTO) 0.1 K/uL (0.0-0.2); BASOPHILS % (AUTO) 0.9 % (0.0-2.0); EOSINOPHILS # (AUTO) 0.2 K/uL (0.0-0.4); EOSINOPHILS % (AUTO) 1.7 % (0.0-4.0); HEMATOCRIT 41.1 % (36-48); HEMOGLOBIN 12.8 g/dL (12.0-16.0); LYMPHOCYTES # (AUTO) 1.8 K/uL (1.0-5.5); MEAN CORPUSCULAR HEMOGLOBIN 26 pg (27-31); MEAN CORPUSCULAR HGB CONC 31 % (32-36); MEAN CORPUSCULAR VOLUME 83 fL (79.0-98.0); MONOCYTES # (AUTO) 1.4 K/uL (0.0-1.0); MONOCYTES % (AUTO) 11.6 % (1.7-9.3); NEUTROPHILS # (AUTO) 8.5 K/uL (1.8-7.7); NEUTROPHILS % (AUTO) 70.8 % (40.0-70.0); PLATELET COUNT (AUTO) 222 K/uL (130-430); RED BLOOD CELL COUNT(AUTO) 4.95 MIL/uL (4.2-6.2); RED CELL DISTRIBUTION WIDTH 17.2 % (9.0-15.0); WHITE BLOOD COUNT (AUTO) 12.1 K/uL (4.8-10.8)
[2020-01-21] MEDS: LEVOTHYROXINE SODIUM 0.025 MG TABLET PO SCH (06:27)
[2020-01-21] MEDS ORDERED: GLUCOSE 15 GM GEL (in 37.5 GM TUBE) PO PRN (06:30)
[2020-01-21] MEDS ORDERED: DEXTROSE 50% JECT 50 ML DISP.SYRIN IVP PRN (06:30)
[2020-01-21 06:37] LABS: ALBUMIN 2.7 g/dL (3.4-4.8); CALCIUM 8.1 mg/dL (8.4-11.0); CREATININE 1.21 mg/dL (0.55-1.30); POTASSIUM 3.8 mmol/L (3.5-5.1); TOTAL BILIRUBIN 1.4 mg/dL (0.0-1.0)
[2020-01-21] MEDS ORDERED: LISINOPRIL 10 MG TABLET (PRINIVIL) ONE (08:32)
[2020-01-21] MEDS: CARVEDILOL 3.125 MG TABLET (COREG) PO SCH ×2 (08:51→21:01)
[2020-01-21] MEDS: PREGABALIN 75 MG CAPSULE (LYRICA) PO SCH ×2 (08:52→21:03)
[2020-01-21] MEDS: FUROSEMIDE 40 MG TABLET PO SCH (08:52)
[2020-01-21] MEDS: LISINOPRIL 10 MG TABLET (PRINIVIL) PO SCH ×2 (08:52→21:02)
[2020-01-21] MEDS: ATORVASTATIN 20 MG TABLET PO SCH (08:52)
[2020-01-21 08:55] VITALS: BP_SYST 146
[2020-01-21] MEDS: ENOXAPARIN SODIUM 40 MG/0.4 ML SYRINGE SUBCUT SCH (09:00)
[2020-01-21] MEDS: BALSAM PERU/CASTOR OIL 60 GM OINT...G. TP SCH (11:45)
[2020-01-21] MEDS: HYDROcodone/ACETAMIN 5-325 MG TAB (NORCO/ VICODIN) PO PRN (12:03)
[2020-01-21 12:10] VITALS: BP_SYST 117
[2020-01-21] MEDS: CLINDAMYCIN 300 MG in D5W 50 ML IV SCH ×3 (14:18→23:06)
[2020-01-21 16:38] VITALS: BP_SYST 122
[2020-01-21] MEDS ORDERED: VANCOMYCIN HCL 1,250 MG in NS 250 ML IV SCH (17:00)
[2020-01-21] MEDS: INSULIN REGULAR, HUMAN 100 UNITS/ML, 10 ML VIAL (humuLIN R) SUBCUT PRN ×2 (18:17→21:20)
[2020-01-21 19:20] VITALS: BP_SYST 129
[2020-01-21] MEDS: LEVOFLOXACIN 500 MG/D5W 100 ML IV SCH (21:07)
[2020-01-22 00:09] VITALS: BP_SYST 118
[2020-01-22] MEDS: CLINDAMYCIN 300 MG in D5W 50 ML IV SCH ×3 (05:14→17:03)
[2020-01-22] MEDS: LEVOTHYROXINE SODIUM 0.025 MG TABLET PO SCH (06:08)
[2020-01-22 08:00] VITALS: BP_SYST 114
[2020-01-22] MEDS: LISINOPRIL 10 MG TABLET (PRINIVIL) PO SCH ×2 (08:31→21:00)
[2020-01-22] MEDS: HYDROcodone/ACETAMIN 5-325 MG TAB (NORCO/ VICODIN) PO PRN ×3 (08:31→17:06)
[2020-01-22] MEDS: CARVEDILOL 3.125 MG TABLET (COREG) PO SCH ×2 (08:32→21:00)
[2020-01-22] MEDS: PREGABALIN 75 MG CAPSULE (LYRICA) PO SCH ×2 (08:32→21:54)
[2020-01-22] MEDS: FUROSEMIDE 40 MG TABLET PO SCH (08:32)
[2020-01-22] MEDS: ATORVASTATIN 20 MG TABLET PO SCH (08:33)
[2020-01-22] MEDS: ENOXAPARIN SODIUM 40 MG/0.4 ML SYRINGE SUBCUT SCH (08:33)
[2020-01-22] MEDS: BALSAM PERU/CASTOR OIL 60 GM OINT...G. TP SCH (10:15)
[2020-01-22 12:00] VITALS: BP_SYST 92
[2020-01-22 16:00] VITALS: BP_SYST 95
[2020-01-22 21:02] VITALS: BP_SYST 98
[2020-01-22] MEDS: LEVOFLOXACIN 500 MG/D5W 100 ML IV SCH (21:55)
[2020-01-22] MEDS: INSULIN REGULAR, HUMAN 100 UNITS/ML, 10 ML VIAL (humuLIN R) SUBCUT PRN (21:57)
[2020-01-23 00:02] VITALS: BP_SYST 113
[2020-01-23] MEDS: CLINDAMYCIN 300 MG in D5W 50 ML IV SCH ×4 (01:18→16:44)
[2020-01-23] MEDS: HYDROcodone/ACETAMIN 5-325 MG TAB (NORCO/ VICODIN) PO PRN ×3 (01:38→12:58)
[2020-01-23] MEDS: LEVOTHYROXINE SODIUM 0.025 MG TABLET PO SCH (06:13)
[2020-01-23 08:08] VITALS: BP_SYST 132
[2020-01-23] MEDS: BALSAM PERU/CASTOR OIL 60 GM OINT...G. TP SCH (08:32)
[2020-01-23] MEDS: LISINOPRIL 10 MG TABLET (PRINIVIL) PO SCH (08:33)
[2020-01-23] MEDS: ATORVASTATIN 20 MG TABLET PO SCH (08:33)
[2020-01-23] MEDS: FUROSEMIDE 40 MG TABLET PO SCH (08:33)
[2020-01-23] MEDS: PREGABALIN 75 MG CAPSULE (LYRICA) PO SCH (08:33)
[2020-01-23] MEDS: CARVEDILOL 3.125 MG TABLET (COREG) PO SCH (08:34)
[2020-01-23] MEDS: ENOXAPARIN SODIUM 40 MG/0.4 ML SYRINGE SUBCUT SCH (08:35)
[2020-01-23 09:39] VITALS: BP_SYST 132
[2020-01-23 12:35] VITALS: BP_SYST 112
[2020-01-23 13:14] VITALS: BP_SYST 118
[2020-01-23 16:48] VITALS: BP_SYST 118
[2020-01-23] MEDS ORDERED: CLIN300C11 PO ×2 (18:30→18:31)
[2020-01-23] MEDS ORDERED: LEVO750T45 PO (18:32)
== END 2020-01-23 18:50 | disposition home health service (06) | DRG 383 ==
LOC: SED 16:40 → STU 19:02 → SMU 01-22 21:50
PROVIDERS: ADMIT Internal Medicine Hospice and Palliative Medicine; ATTEND Internal Medicine Hospice and Palliative Medicine
DX: L03.115 Cellulitis of right lower limb (principal); E46 Unspecified protein-calorie malnutrition; E87.2 Acidosis; I10 Essential (primary) hypertension; E11.9 Type 2 diabetes mellitus without complications; J44.9 Chronic obstructive pulmonary disease, unspecified; I89.0 Lymphedema, not elsewhere classified; I25.10 Atherosclerotic heart disease of native coronary artery without angina pectoris; L03.116 Cellulitis of left lower limb; Z95.0 Presence of cardiac pacemaker; Z88.0 Allergy status to penicillin; Z79.1 Long term (current) use of non-steroidal anti-inflammatories (NSAID); Z79.899 Other long term (current) drug therapy; Z68.32 Body mass index [BMI] 32.0-32.9, adult; Z66 Do not resuscitate; Z83.3 Family history of diabetes mellitus
CPT/HCPCS: 36415; 73700-TC; 80053; 82962; 83605; 85025; 85651-TC; 86140; 87040-TC; 87081; 96365; 96368; 99285; G0378; J0696; J1650; J1815; J1956; J3370; J3490; J7060

== ENCOUNTER 2021-11-26 11:12 | Emergency (ER) | payer MEDICAID, SELFPAY ==
[~2021-11-26] VITALS: Ht 165.1 cm; Wt 81.6 kg
[~2021-11-26 11:12] MED LIST changes: +ASA81 PO; -CARV3.1246 PO; -CLIN300C11 PO; +COR6.25 PO; -GABA-529 PO; +HYDR-4038 PO; -INSU100I26 SQ; -LEVO25TA2 PO; -LISI10TA5 PO; +LISI20TA30 PO; -METF1000 PO; -POTA20TA83 PO; +SPIR25TA PO
[2021-11-26 11:21] VITALS: BP_SYST 145
[2021-11-26 11:45] LABS: BASOPHILS # (AUTO) 0.1 K/uL (0.0-0.2); EOSINOPHILS # (AUTO) 0.1 K/uL (0.0-0.4); EOSINOPHILS % (AUTO) 2.1 % (0.0-4.0); HEMATOCRIT 35.6 % (36-48); HEMOGLOBIN 11.3 g/dL (12.0-16.0); LYMPHOCYTES # (AUTO) 1.2 K/uL (1.0-5.5); LYMPHOCYTES % (AUTO) 17.2 % (20.5-51.5); MEAN CORPUSCULAR HEMOGLOBIN 27 pg (27-31); MEAN CORPUSCULAR HGB CONC 32 % (32-36); MEAN CORPUSCULAR VOLUME 85 fL (79.0-98.0); MONOCYTES # (AUTO) 0.6 K/uL (0.0-1.0); MONOCYTES % (AUTO) 8.5 % (1.7-9.3); NEUTROPHILS # (AUTO) 5.1 K/uL (1.8-7.7); NEUTROPHILS % (AUTO) 71.2 % (40.0-70.0); PLATELET COUNT (AUTO) 280 K/uL (130-430); RED BLOOD CELL COUNT(AUTO) 4.19 MIL/uL (4.2-6.2); RED CELL DISTRIBUTION WIDTH 19.5 % (9.0-15.0); WHITE BLOOD COUNT (AUTO) 7.1 K/uL (4.8-10.8)
[2021-11-26 12:08] LABS: CALCIUM 8.3 mg/dL (8.4-11.0); CREATININE 0.92 mg/dL (0.55-1.30); POTASSIUM 4.2 mmol/L (3.5-5.1)
[2021-11-26 12:13] LABS: TOTAL BILIRUBIN 0.9 mg/dL (0.0-1.0)
[2021-11-26] MEDS ORDERED: APIX5TAB4 PO ×2 (13:47→13:52)
[2021-11-26] MEDS ORDERED: HYDR-3917 PO (13:47)
[2021-11-26 14:21] VITALS: BP_SYST 145
== END 2021-11-26 14:22 | disposition home or self-care (01) ==
LOC: SED 11:12
DX: S42.252A Displaced fracture of greater tuberosity of left humerus, initial encounter for closed fracture (principal); I82.622 Acute embolism and thrombosis of deep veins of left upper extremity; I10 Essential (primary) hypertension; E11.9 Type 2 diabetes mellitus without complications; J44.9 Chronic obstructive pulmonary disease, unspecified; Z88.0 Allergy status to penicillin; Z79.899 Other long term (current) drug therapy; W01.0XXA Fall on same level from slipping, tripping and stumbling without subsequent striking against object, initial encounter; Y93.89 Activity, other specified; Y92.89 Other specified places as the place of occurrence of the external cause; Y99.8 Other external cause status
CPT/HCPCS: 36415; 73060-TC; 80053; 83605; 85025; 86140; 93971; 99285

== ENCOUNTER 2022-08-12 17:43 | Emergency (ER) | payer MEDICAID ==
[~2022-08-12] VITALS: Ht 160 cm; Wt 90.7 kg
[~2022-08-12 17:43] MED LIST changes: +APIX5TAB4 PO; +HYDR-3917 PO
[2022-08-12 17:56] VITALS: BP_SYST 135
--- NOTE | 2022-08-12 18:08 | NUR ---
Patient to ER bed 02 to gown for evaluation. Side rails up.
[2022-08-12 19:29] LABS: BASOPHILS # (AUTO) 0.1 K/uL (0.0-0.2); HEMOGLOBIN 10.7 g/dL (12.0-16.0); RED BLOOD CELL COUNT(AUTO) 4.17 MIL/uL (4.2-6.2); WHITE BLOOD COUNT (AUTO) 6.2 K/uL (4.8-10.8)
--- NOTE | 2022-08-12 19:30 | NUR ---
Received pt up in bed in stable condition. No signs of acute distress. Breathing adequately on RA.
[2022-08-12 19:40] LABS: BASOPHILS % (AUTO) 0.9 % (0.0-2.0); EOSINOPHILS # (AUTO) 0.1 K/uL (0.0-0.4); EOSINOPHILS % (AUTO) 1.8 % (0.0-4.0); HEMATOCRIT 33.6 % (36-48); LYMPHOCYTES # (AUTO) 0.9 K/uL (1.0-5.5); LYMPHOCYTES % (AUTO) 14.4 % (20.5-51.5); MEAN CORPUSCULAR HEMOGLOBIN 26 pg (27-31); MEAN CORPUSCULAR HGB CONC 32 % (32-36); MEAN CORPUSCULAR VOLUME 81 fL (79.0-98.0); NEUTROPHILS # (AUTO) 4.1 K/uL (1.8-7.7); NEUTROPHILS % (AUTO) 65.9 % (40.0-70.0); PLATELET COUNT (AUTO) 235 K/uL (130-430); RED CELL DISTRIBUTION WIDTH 21.1 % (9.0-15.0)
[2022-08-12 19:45] LABS: CALCIUM 8.5 mg/dL (8.4-11.0)
[2022-08-12 19:50] LABS: ALBUMIN 2.4 g/dL (3.4-4.8); C-REACTIVE PROTEIN QUANT 3.5 mg/dL (0-0.5); TOTAL BILIRUBIN 0.8 mg/dL (0.0-1.0)
[2022-08-12] MEDS ORDERED: CLIN-22 PO (20:39)
--- NOTE | 2022-08-12 21:02 | NUR ---
Patient given written and verbal discharge instructions and verbalizes understanding. ER MD Anne discussed with patient the results and treatment provided. Patient in stable condition. ID arm band removed. Rx of Climdamycin sent to preferred pharmacy. Patient educated POC and to follow up with PMD. Opportunity for questions provided and answered. Medication side effect fact sheet provided.
[2022-08-12 21:13] VITALS: BP_SYST 111
[2022-08-12] MEDS ORDERED: IBUPROFEN 600 MG TABLET PO ONE (21:15)
== END 2022-08-12 21:12 | disposition home or self-care (01) ==
LOC: SED 17:43
DX: L03.116 Cellulitis of left lower limb (principal); L03.115 Cellulitis of right lower limb; R22.43 Localized swelling, mass and lump, lower limb, bilateral; J44.9 Chronic obstructive pulmonary disease, unspecified; E11.9 Type 2 diabetes mellitus without complications; I11.0 Hypertensive heart disease with heart failure; I50.9 Heart failure, unspecified; Z88.0 Allergy status to penicillin; Z79.899 Other long term (current) drug therapy
CPT/HCPCS: 36415; 80053; 83605; 85025; 86140; 99283

== ENCOUNTER 2023-10-16 14:03 | Inpatient (IN) | payer MEDICAID ==
[~2023-10-16] VITALS: Ht 154.9 cm; Wt 89.8 kg
[~2023-10-16 14:03] MED LIST changes: +CLIN-22 PO
[2023-10-16 14:10] VITALS: BP_SYST 110; PULSE 88; RESP 18; TEMP 97.6; O2SAT 77
[2023-10-16 14:53] LABS: BLOOD GAS HCO3 22.5 mmol/L (21.0-27.0)
[2023-10-16 14:56] LABS: BLOOD GAS PH 7.218 (7.350-7.450)
[2023-10-16 14:57] LABS: ABG O2 SAT% ESTIMATE 69.3 % (94.0-100.0); ALLEN'S TEST POSITIVE (P); BLOOD GAS PCO2 56.5 mmHg (35.0-45.0); BLOOD GAS PO2 43.5 mmHg (75.0-100.0)
[2023-10-16 15:26] LABS: INFLUENZA TYPE A Negative (NEGATIVE); INFLUENZA TYPE B NEGATIVE (NEGATIVE)
[2023-10-16 15:27] LABS: BASOPHILS % (AUTO) 0.3 % (0.0-2.0); HEMATOCRIT 51.2 % (36-48); HEMOGLOBIN 16.1 g/dL (12.0-16.0); LYMPHOCYTES # (AUTO) 0.7 K/uL (1.0-5.5); LYMPHOCYTES % (AUTO) 6.6 % (20.5-51.5); MEAN CORPUSCULAR HEMOGLOBIN 26 pg (27-31); MEAN CORPUSCULAR HGB CONC 31 % (32-36); MEAN CORPUSCULAR VOLUME 83 fL (79.0-98.0); MONOCYTES # (AUTO) 1.4 K/uL (0.0-1.0); MONOCYTES % (AUTO) 12.2 % (1.7-9.3); NEUTROPHILS # (AUTO) 9.1 K/uL (1.8-7.7); NEUTROPHILS % (AUTO) 80.9 % (40.0-70.0); PLATELET COUNT (AUTO) 384 K/uL (130-430); RED BLOOD CELL COUNT(AUTO) 6.18 MIL/uL (4.2-6.2); RED CELL DISTRIBUTION WIDTH 17.5 % (9.0-15.0); WHITE BLOOD COUNT (AUTO) 11.2 K/uL (4.8-10.8)
[2023-10-16 15:31] LABS: ANION GAP 6 (5-15); CALCIUM 9.6 mg/dL (8.4-11.0); CARBON DIOXIDE 29 mmol/L (23-29); CHLORIDE 101 mmol/L (98-107); GFR AFRICAN AMERICAN 34 mL/min (>90); GFR NON AFRICAN-AMERICAN 28 mL/min (>90); GLUCOSE 203 mg/dL (74-106); POTASSIUM 5.6 mmol/L (3.5-5.1); SODIUM SERUM 136 mmol/L (136-145); UREA NITROGEN, BLOOD 53 mg/dL (8-21)
[2023-10-16 15:45] LABS: ALANINE AMINOTRANSFERASE 42 U/L (12-78); ALBUMIN 2.3 g/dL (3.4-4.8); ASPARTATE AMINOTRANSFERASE 55 U/L (10-37); BILIRUBIN,DIRECT 0.5 mg/dL (0.0-0.3); PHOSPHORUS 6.7 mg/dL (2.7-4.5); THYROID STIMULATING HORMONE 8.11 uIu/mL (0.34-4.82); TOTAL BILIRUBIN 0.8 mg/dL (0.0-1.0); TOTAL PROTEIN, SERUM 7.1 g/dL (6.4-8.3)
[2023-10-16] MEDS: NS 250 ML IV ONE (16:26)
[2023-10-16] MEDS: FUROSEMIDE 40 MG/4 ML VIAL IVP ONE (16:27)
[2023-10-16 17:58] LABS: BLOOD GAS HCO3 24.1 mmol/L (21.0-27.0); BLOOD GAS PO2 66.9 mmHg (75.0-100.0)
[2023-10-16 18:00] LABS: ALLEN'S TEST POSITIVE (P); BLOOD GAS BASE EXCESS -6.7 mmol/L (-3.0-3.0); BLOOD GAS PCO2 73.5 mmHg (35.0-45.0); BLOOD GAS PH 7.133 (7.350-7.450)
[2023-10-16] MEDS ORDERED: ETOMIDATE 20 MG/ 10 ML VIAL (AMIDATE) ONE (18:16)
[2023-10-16] MEDS ORDERED: ROCURONIUM BROMIDE 10 MG/ML (ZEMURON) ONE (18:16)
[2023-10-16] MEDS: ROCURONIUM BROMIDE 10 MG/ML (ZEMURON) IV ONE (18:31)
[2023-10-16] MEDS: ETOMIDATE 20 MG/ 10 ML VIAL (AMIDATE) IVP ONE (18:31)
[2023-10-16] MEDS: PROPOFOL DRIP 100 ML IV PRN (18:32)
[2023-10-16 19:00] VITALS: BP_SYST 148; PULSE 94
[2023-10-16 20:10] LABS: ABG O2 SAT% ESTIMATE 99.8 % (94.0-100.0); BLOOD GAS BASE EXCESS -2.8 mmol/L (-3.0-3.0); BLOOD GAS HCO3 22.4 mmol/L (21.0-27.0); BLOOD GAS PCO2 40.4 mmHg (35.0-45.0); BLOOD GAS PH 7.361 (7.350-7.450); BLOOD GAS PO2 438.2 mmHg (75.0-100.0)
[2023-10-16 20:11] LABS: ALLEN'S TEST POSITIVE (P)
[2023-10-16 21:00] VITALS: PULSE 87
[2023-10-16 23:00] VITALS: PULSE 70
[2023-10-16 23:06] LABS: BILIRUBIN,URINE NEGATIVE (NEGATIVE); COLOR,URINE YELLOW (YELLOW); GLUCOSE,URINE NEGATIVE (NEGATIVE); KETONES,URINE NEGATIVE (NEGATIVE); LEUKOCYTE ESTERASE ,URINE NEGATIVE (NEGATIVE); NITRITE, URINE NEGATIVE (NEGATIVE); PROTEIN URINE TRACE (NEGATIVE); UROBILINOGEN,URINE 0.2 (0.2-1.0)
[2023-10-16] MEDS ORDERED: MORPHINE 2 MG/ML INJ. SYRINGE IVP PRN (23:15)
[2023-10-16] MEDS ORDERED: NALOXONE HCL 0.4 MG/ML AMP (NARCAN) IVP PRN (23:15)
[2023-10-16] MEDS: D5/0.45 NS 1,000 ML IV SCH (23:15)
[2023-10-16] MEDS ORDERED: ONDANSETRON HCL 4 MG/2 ML VIAL IVP PRN (23:15)
[2023-10-16 23:27] LABS: BLOOD, URINE 1+ (NEGATIVE); CLARITY/URINE HAZY (CLEAR)
[2023-10-16 23:28] LABS: BACTERIA,URINE None Seen /HPF (None Seen); WBC,URINE 0-3 /HPF (0-3)
[2023-10-16 23:43] VITALS: BP_SYST 108; PULSE 72; O2SAT 100
[2023-10-17] VITALS (23 sets, daily range): BP systolic 90–162; PULSE 60–129; RESP 16–26; TEMP 96.4–98; O2SAT 90–100
[2023-10-17] MEDS: ALBUTEROL SULFATE 0.083% 2.5 MG/3 ML VIAL.NEB INH SCH (03:23)
[2023-10-17] MEDS: IPRATROPIUM BROM 0.5 MG/2.5 ML VIAL.NEB (ATROVENT) INH SCH (03:24)
[2023-10-17 08:14] LABS: HEMOGLOBIN 12.5 g/dL (12.0-16.0); MEAN CORPUSCULAR HEMOGLOBIN 26 pg (27-31); MEAN CORPUSCULAR HGB CONC 32 % (32-36); MEAN CORPUSCULAR VOLUME 81 fL (79.0-98.0); PLATELET COUNT (AUTO) 292 K/uL (130-430); RED BLOOD CELL COUNT(AUTO) 4.84 MIL/uL (4.2-6.2); RED CELL DISTRIBUTION WIDTH 17.5 % (9.0-15.0); WHITE BLOOD COUNT (AUTO) 23.5 K/uL (4.8-10.8)
[2023-10-17 08:40] LABS: ALBUMIN 1.5 g/dL (3.4-4.8); CALCIUM 8.1 mg/dL (8.4-11.0); CREATININE 1.82 mg/dL (0.55-1.30); PHOSPHORUS 4.4 mg/dL (2.7-4.5); POTASSIUM 4.6 mmol/L (3.5-5.1); TOTAL BILIRUBIN 1.1 mg/dL (0.0-1.0); TOTAL PROTEIN, SERUM 4.9 g/dL (6.4-8.3)
[2023-10-17 09:00] LABS: ANISOCYTOSIS 1+; BASOPHILS % (MANUAL) 0 % (0-2); EOSINOPHILS % (MANUAL) 2 % (0-7); LYMPHOCYTES % (MANUAL) 4 % (20-46); MONOCYTES % (MANUAL) 16 % (0-11); PLATELET ESTIMATE ADEQUATE (ADEQUATE); POLYCHROMASIA SLIGHT; TARGET CELLS RARE
[2023-10-17] MEDS: FUROSEMIDE 20 MG/2 ML VIAL IVP SCH (09:00)
[2023-10-17] MEDS ORDERED: DEXTROSE 50% JECT 50 ML DISP.SYRIN IVP PRN (09:30)
[2023-10-17] MEDS ORDERED: GLUCOSE (DEXTROSE) ORAL GEL -Adults PO PRN (09:30)
[2023-10-17] MEDS: NACL 0.9% 1,000 ML IV SCH (10:00)
[2023-10-17] MEDS ORDERED: NOREPINEPHRINE 4 MG/4 ML VIAL IV ONE ×2 (11:40)
[2023-10-17] MEDS: CEFEPIME 2 GM in D5W 100 ML IV ONE (11:51)
[2023-10-17] MEDS: NOREPINEPHRINE BITARTRATE 4 MG in D5W 246 ML IV PRN (12:05)
[2023-10-17] MEDS: ALBUMIN HUMAN 25% 50 ML IV SCH (16:18)
[2023-10-17] MEDS: PROPOFOL DRIP 100 ML IV ONE (18:35)
[2023-10-17] MEDS: BUDESONIDE 0.5 MG/2 ML AMPUL.NEB INH SCH (19:24)
[2023-10-17] MEDS: RIVAROXABAN 10 MG TABLET PO SCH (19:47)
[2023-10-17] MEDS: CARVEDILOL 6.25 MG TABLET (COREG) PO SCH (22:09)
[2023-10-18] VITALS (35 sets, daily range): BP systolic 91–152; PULSE 85–123; RESP 14–22; TEMP 97.5–98.3; O2SAT 91–97
[2023-10-18 05:29] LABS: BASOPHILS % (AUTO) 0.3 % (0.0-2.0); EOSINOPHILS # (AUTO) 0.1 K/uL (0.0-0.4); EOSINOPHILS % (AUTO) 0.6 % (0.0-4.0); HEMOGLOBIN 10.7 g/dL (12.0-16.0); LYMPHOCYTES # (AUTO) 0.6 K/uL (1.0-5.5); LYMPHOCYTES % (AUTO) 5.9 % (20.5-51.5); MEAN CORPUSCULAR HEMOGLOBIN 26 pg (27-31); MEAN CORPUSCULAR HGB CONC 32 % (32-36); MEAN CORPUSCULAR VOLUME 79 fL (79.0-98.0); MONOCYTES # (AUTO) 1.5 K/uL (0.0-1.0); MONOCYTES % (AUTO) 14.4 % (1.7-9.3); NEUTROPHILS # (AUTO) 7.9 K/uL (1.8-7.7); NEUTROPHILS % (AUTO) 78.8 % (40.0-70.0); PLATELET COUNT (AUTO) 210 K/uL (130-430); RED BLOOD CELL COUNT(AUTO) 4.17 MIL/uL (4.2-6.2); RED CELL DISTRIBUTION WIDTH 17.2 % (9.0-15.0); WHITE BLOOD COUNT (AUTO) 10.1 K/uL (4.8-10.8)
[2023-10-18 05:34] LABS: CREATININE 1.55 mg/dL (0.55-1.30); POTASSIUM 3.2 mmol/L (3.5-5.1)
[2023-10-18 05:49] LABS: INR 1.4 (0.8-1.2); PROTHROMBIN TIME 14.2 SECS (9.5-12.5)
[2023-10-18 05:55] LABS: ALBUMIN 1.5 g/dL (3.4-4.8); TOTAL BILIRUBIN 1.3 mg/dL (0.0-1.0); TOTAL PROTEIN, SERUM 4.3 g/dL (6.4-8.3)
[2023-10-18] MEDS: CEFEPIME 2 GM in D5W 100 ML IV SCH (08:19)
[2023-10-18 09:26] LABS: ABG O2 SAT% ESTIMATE 95.9 % (94.0-100.0); BLOOD GAS BASE EXCESS 6.5 mmol/L (-3.0-3.0); BLOOD GAS HCO3 28.5 mmol/L (21.0-27.0); BLOOD GAS PCO2 32.9 mmHg (35.0-45.0)
[2023-10-18 09:34] LABS: ALLEN'S TEST POSITIVE (P); BLOOD GAS PH 7.555 (7.350-7.450)
[2023-10-18] MEDS: KCL 40 mEq in 100 mL (PREMIX) 100 ML IV ONE (11:05)
[2023-10-18] MEDS: PROPOFOL DRIP 100 ML IV PRN (17:38)
[2023-10-18] MEDS: DOXYCYCLINE HYCLATE 100 MG in D5W 100 ML IV SCH (20:31)
[2023-10-19] VITALS (37 sets, daily range): BP systolic 78–128; PULSE 82–148; RESP 14–20; TEMP 97.2–98; O2SAT 92–96
[2023-10-19 04:59] LABS: BASOPHILS % (AUTO) 0.2 % (0.0-2.0); EOSINOPHILS % (AUTO) 0.3 % (0.0-4.0); HEMATOCRIT 35.3 % (36-48); HEMOGLOBIN 11.4 g/dL (12.0-16.0); LYMPHOCYTES # (AUTO) 0.5 K/uL (1.0-5.5); LYMPHOCYTES % (AUTO) 4.3 % (20.5-51.5); MEAN CORPUSCULAR HEMOGLOBIN 26 pg (27-31); MEAN CORPUSCULAR HGB CONC 32 % (32-36); MEAN CORPUSCULAR VOLUME 80 fL (79.0-98.0); MONOCYTES # (AUTO) 2.1 K/uL (0.0-1.0); MONOCYTES % (AUTO) 17.3 % (1.7-9.3); NEUTROPHILS # (AUTO) 9.7 K/uL (1.8-7.7); NEUTROPHILS % (AUTO) 77.9 % (40.0-70.0); PLATELET COUNT (AUTO) 207 K/uL (130-430); RED BLOOD CELL COUNT(AUTO) 4.41 MIL/uL (4.2-6.2); RED CELL DISTRIBUTION WIDTH 17.1 % (9.0-15.0); WHITE BLOOD COUNT (AUTO) 12.5 K/uL (4.8-10.8)
[2023-10-19 05:13] LABS: ALBUMIN 1.4 g/dL (3.4-4.8); CALCIUM 7.7 mg/dL (8.4-11.0); CREATININE 1.52 mg/dL (0.55-1.30); TOTAL BILIRUBIN 1.7 mg/dL (0.0-1.0); TOTAL PROTEIN, SERUM 4.7 g/dL (6.4-8.3)
[2023-10-19 06:08] LABS: POTASSIUM 2.7 mmol/L (3.5-5.1)
[2023-10-19] MEDS: INSULIN REGULAR, HUMAN 100 UNITS/ML, 3 ML VIAL (humuLIN R) SUBCUT PRN (06:14)
[2023-10-19] MEDS: METOPROLOL TARTRATE 5 MG/5 ML VIAL IVP PRN (06:36)
[2023-10-19] MEDS: KCL 40 mEq in 100 mL (PREMIX) 100 ML IV ONE (06:42)
[2023-10-19] MEDS: AMIODARONE HCL 150 MG/3ML VIAL ONE (07:29)
[2023-10-19] MEDS: AMIODARONE HCL 150 MG in D5W 100 ML IV ONE (07:31)
[2023-10-19] MEDS: AMIODARONE HCL 450 MG in D5W 241 ML IV SCH (07:42)
[2023-10-19] MEDS: POTASSIUM CHLORIDE 20 MEQ/PKT PACKET NG ONE (09:09)
[2023-10-19 09:26] LABS: ABG O2 SAT% ESTIMATE 97.1 % (94.0-100.0); BLOOD GAS BASE EXCESS 8.4 mmol/L (-3.0-3.0); BLOOD GAS HCO3 31.6 mmol/L (21.0-27.0); BLOOD GAS PCO2 38.3 mmHg (35.0-45.0); BLOOD GAS PO2 82.1 mmHg (75.0-100.0)
[2023-10-19 09:29] LABS: ALLEN'S TEST POSITIVE (P); BLOOD GAS PH 7.534 (7.350-7.450)
[2023-10-19] MEDS: NOREPINEPHR 8 MG/250 mL NS 250 ML IV PRN (10:35)
[2023-10-19] MEDS: POTASSIUM CHLORIDE 40 MEQ, LIDOCAINE JECT 2% PF 100 MG 50 MG in NS 250 ML IV ONE (12:56)
[2023-10-20] VITALS (43 sets, daily range): BP systolic 68–171; PULSE 79–123; RESP 14–25; TEMP 97.3–99.1; O2SAT 91–100
[2023-10-20 05:52] LABS: BASOPHILS % (AUTO) 0.3 % (0.0-2.0); EOSINOPHILS # (AUTO) 0.1 K/uL (0.0-0.4); EOSINOPHILS % (AUTO) 0.8 % (0.0-4.0); HEMATOCRIT 40.3 % (36-48); HEMOGLOBIN 12.8 g/dL (12.0-16.0); LYMPHOCYTES # (AUTO) 0.7 K/uL (1.0-5.5); LYMPHOCYTES % (AUTO) 5.3 % (20.5-51.5); MEAN CORPUSCULAR HEMOGLOBIN 26 pg (27-31); MEAN CORPUSCULAR HGB CONC 32 % (32-36); MEAN CORPUSCULAR VOLUME 81 fL (79.0-98.0); MONOCYTES # (AUTO) 2.9 K/uL (0.0-1.0); MONOCYTES % (AUTO) 20.9 % (1.7-9.3); NEUTROPHILS # (AUTO) 9.9 K/uL (1.8-7.7); NEUTROPHILS % (AUTO) 72.7 % (40.0-70.0); PLATELET COUNT (AUTO) 271 K/uL (130-430); RED BLOOD CELL COUNT(AUTO) 5.01 MIL/uL (4.2-6.2); RED CELL DISTRIBUTION WIDTH 17.5 % (9.0-15.0); WHITE BLOOD COUNT (AUTO) 13.7 K/uL (4.8-10.8)
[2023-10-20 06:06] LABS: ALBUMIN 1.4 g/dL (3.4-4.8); CALCIUM 7.8 mg/dL (8.4-11.0); CREATININE 1.42 mg/dL (0.55-1.30); POTASSIUM 4.2 mmol/L (3.5-5.1); TOTAL BILIRUBIN 2.1 mg/dL (0.0-1.0); TOTAL PROTEIN, SERUM 5.5 g/dL (6.4-8.3)
[2023-10-20 08:10] LABS: ABG O2 SAT% ESTIMATE 97.3 % (94.0-100.0); BLOOD GAS BASE EXCESS 7.5 mmol/L (-3.0-3.0); BLOOD GAS HCO3 31.2 mmol/L (21.0-27.0); BLOOD GAS PCO2 40.7 mmHg (35.0-45.0); BLOOD GAS PO2 87.9 mmHg (75.0-100.0)
[2023-10-20 08:15] LABS: ALLEN'S TEST POSITIVE (P); BLOOD GAS PH 7.503 (7.350-7.450)
[2023-10-20] MEDS: AMIODARONE HCL 200 MG TABLET PO ONE (09:55)
[2023-10-20] MEDS: ALBUMIN HUMAN 25% 100 ML IV ONE (11:54)
[2023-10-20] MEDS: FUROSEMIDE 20 MG/2 ML VIAL IVP ONE (13:15)
[2023-10-20] MEDS: ALBUMIN HUMAN 25% 100 ML IV SCH (13:20)
[2023-10-20] MEDS: FUROSEMIDE 20 MG/2 ML VIAL IVP SCH (16:57)
[2023-10-20 18:12] LABS: CALCIUM 7.5 mg/dL (8.4-11.0); CREATININE 1.45 mg/dL (0.55-1.30); POTASSIUM 3.8 mmol/L (3.5-5.1)
[2023-10-20] MEDS ORDERED: AMIODARONE HCL 200 MG TABLET PO SCH (21:00)
[2023-10-20] MEDS: AMIODARONE HCL 200 MG TABLET PO SCH (22:43)
[2023-10-21] VITALS (40 sets, daily range): BP systolic 82–147; PULSE 62–83; RESP 14–30; TEMP 97.6–98.6; O2SAT 93–100
[2023-10-21 05:48] LABS: BASOPHILS # (AUTO) 0.1 K/uL (0.0-0.2); BASOPHILS % (AUTO) 0.5 % (0.0-2.0); EOSINOPHILS # (AUTO) 0.1 K/uL (0.0-0.4); HEMATOCRIT 34.7 % (36-48); LYMPHOCYTES # (AUTO) 0.8 K/uL (1.0-5.5); LYMPHOCYTES % (AUTO) 5.6 % (20.5-51.5); MEAN CORPUSCULAR HEMOGLOBIN 25 pg (27-31); MEAN CORPUSCULAR HGB CONC 32 % (32-36); MEAN CORPUSCULAR VOLUME 80 fL (79.0-98.0); MONOCYTES # (AUTO) 2.3 K/uL (0.0-1.0); MONOCYTES % (AUTO) 17.2 % (1.7-9.3); NEUTROPHILS # (AUTO) 10.2 K/uL (1.8-7.7); NEUTROPHILS % (AUTO) 75.7 % (40.0-70.0); PLATELET COUNT (AUTO) 189 K/uL (130-430); RED BLOOD CELL COUNT(AUTO) 4.31 MIL/uL (4.2-6.2); RED CELL DISTRIBUTION WIDTH 17.4 % (9.0-15.0); WHITE BLOOD COUNT (AUTO) 13.5 K/uL (4.8-10.8)
[2023-10-21 06:18] LABS: ALBUMIN 2.3 g/dL (3.4-4.8); CALCIUM 7.3 mg/dL (8.4-11.0); CREATININE 1.36 mg/dL (0.55-1.30); TOTAL BILIRUBIN 3.6 mg/dL (0.0-1.0); TOTAL PROTEIN, SERUM 5.4 g/dL (6.4-8.3)
[2023-10-21 06:54] LABS: POTASSIUM 2.9 mmol/L (3.5-5.1)
[2023-10-21] MEDS: KCL 40 mEq in 100 mL (PREMIX) 100 ML IV ONE (08:32)
[2023-10-21 12:07] LABS: BLOOD GAS HCO3 30.2 mmol/L (21.0-27.0); BLOOD GAS PCO2 46.5 mmHg (35.0-45.0); BLOOD GAS PH 7.431 (7.350-7.450); BLOOD GAS PO2 89.4 mmHg (75.0-100.0)
[2023-10-21 12:10] LABS: ALLEN'S TEST POSITIVE (P)
[2023-10-21] MEDS: NOREPINEPHR 16 MG/250 mL NS 250 ML IV PRN (15:55)
[2023-10-21 16:02] LABS: CALCIUM 7.9 mg/dL (8.4-11.0); CREATININE 1.32 mg/dL (0.55-1.30); POTASSIUM 3.7 mmol/L (3.5-5.1)
[2023-10-21] MEDS ORDERED: POTASSIUM CHLORIDE 40 MEQ, LIDOCAINE JECT 2% PF 100 MG 50 MG in NS 250 ML IV PRN (16:15)
[2023-10-21] MEDS: ALBUMIN HUMAN 25% 50 ML IV SCH (19:15)
[2023-10-22] VITALS (39 sets, daily range): BP systolic 9–151; PULSE 59–120; RESP 16–30; TEMP 96.5–99.1; O2SAT 90–100
[2023-10-22] MEDS: AMIODARONE HCL 200 MG TABLET PO SCH (08:09)
[2023-10-22 09:55] LABS: BASOPHILS % (AUTO) 0.4 % (0.0-2.0); EOSINOPHILS # (AUTO) 0.1 K/uL (0.0-0.4); EOSINOPHILS % (AUTO) 1.3 % (0.0-4.0); HEMOGLOBIN 10.8 g/dL (12.0-16.0); LYMPHOCYTES # (AUTO) 0.7 K/uL (1.0-5.5); LYMPHOCYTES % (AUTO) 7.2 % (20.5-51.5); MEAN CORPUSCULAR HEMOGLOBIN 26 pg (27-31); MEAN CORPUSCULAR HGB CONC 32 % (32-36); MEAN CORPUSCULAR VOLUME 81 fL (79.0-98.0); MONOCYTES # (AUTO) 1.4 K/uL (0.0-1.0); MONOCYTES % (AUTO) 14.9 % (1.7-9.3); NEUTROPHILS # (AUTO) 7.1 K/uL (1.8-7.7); NEUTROPHILS % (AUTO) 76.2 % (40.0-70.0); PLATELET COUNT (AUTO) 166 K/uL (130-430); RED BLOOD CELL COUNT(AUTO) 4.19 MIL/uL (4.2-6.2); RED CELL DISTRIBUTION WIDTH 17.3 % (9.0-15.0); WHITE BLOOD COUNT (AUTO) 9.3 K/uL (4.8-10.8)
[2023-10-22 10:12] LABS: ALBUMIN 2.3 g/dL (3.4-4.8); CALCIUM 7.2 mg/dL (8.4-11.0); CREATININE 1.28 mg/dL (0.55-1.30); TOTAL BILIRUBIN 1.8 mg/dL (0.0-1.0); TOTAL PROTEIN, SERUM 5.1 g/dL (6.4-8.3)
[2023-10-22 14:21] LABS: ABG O2 SAT% ESTIMATE 95.9 % (94.0-100.0); ALLEN'S TEST POSITIVE (P); BLOOD GAS BASE EXCESS 5.7 mmol/L (-3.0-3.0); BLOOD GAS HCO3 31.1 mmol/L (21.0-27.0); BLOOD GAS PCO2 47.8 mmHg (35.0-45.0); BLOOD GAS PH 7.431 (7.350-7.450); BLOOD GAS PO2 79.4 mmHg (75.0-100.0)
[2023-10-22] MEDS: POTASSIUM CHLORIDE 20 MEQ/PKT PACKET NG ONE (17:59)
[2023-10-22] MEDS: MORPHINE 4 MG INJ. 4 MG/ML VIAL IVP PRN (20:10)
[2023-10-22] MEDS: POTASSIUM CHLORIDE 20 MEQ TABLET.ER PO ONE (21:17)
[2023-10-22] MEDS: FUROSEMIDE 20 MG/2 ML VIAL ONE ×2 (21:17→21:18)
[2023-10-22] MEDS: MIDODRINE HCL 5 MG TABLET (PROAMATINE) PO SCH (21:18)
[2023-10-22] MEDS: FUROSEMIDE 20 MG/2 ML VIAL IVP SCH (21:18)
[2023-10-22] MEDS: MIDODRINE HCL 5 MG TABLET (PROAMATINE) ONE (21:18)
[2023-10-23] VITALS (34 sets, daily range): BP systolic 72–149; PULSE 59–92; RESP 14–32; TEMP 96.9–98.5; O2SAT 90–100
[2023-10-23] MEDS: DEXMEDETOMIDINE HCL 200 MCG/2 ML VIAL IV ONE (04:12)
[2023-10-23 07:09] LABS: BASOPHILS % (AUTO) 0.1 % (0.0-2.0); EOSINOPHILS # (AUTO) 0.2 K/uL (0.0-0.4); HEMATOCRIT 36.1 % (36-48); LYMPHOCYTES # (AUTO) 0.9 K/uL (1.0-5.5); LYMPHOCYTES % (AUTO) 7.3 % (20.5-51.5); MEAN CORPUSCULAR HEMOGLOBIN 25 pg (27-31); MEAN CORPUSCULAR HGB CONC 31 % (32-36); MEAN CORPUSCULAR VOLUME 83 fL (79.0-98.0); MONOCYTES # (AUTO) 1.9 K/uL (0.0-1.0); MONOCYTES % (AUTO) 15.8 % (1.7-9.3); NEUTROPHILS % (AUTO) 74.8 % (40.0-70.0); PLATELET COUNT (AUTO) 163 K/uL (130-430); RED BLOOD CELL COUNT(AUTO) 4.35 MIL/uL (4.2-6.2); RED CELL DISTRIBUTION WIDTH 17.9 % (9.0-15.0)
[2023-10-23 07:29] LABS: CALCIUM 7.4 mg/dL (8.4-11.0); CREATININE 1.41 mg/dL (0.55-1.30); POTASSIUM 3.9 mmol/L (3.5-5.1); TOTAL BILIRUBIN 1.8 mg/dL (0.0-1.0); TOTAL PROTEIN, SERUM 5.1 g/dL (6.4-8.3)
[2023-10-23 11:42] LABS: BLOOD GAS PCO2 50.5 mmHg (35.0-45.0); BLOOD GAS PH 7.343 (7.350-7.450); BLOOD GAS PO2 69.6 mmHg (75.0-100.0)
[2023-10-23 11:43] LABS: ABG O2 SAT% ESTIMATE 92.9 % (94.0-100.0); ALLEN'S TEST POSITIVE (P); BLOOD GAS BASE EXCESS 0.3 mmol/L (-3.0-3.0); BLOOD GAS HCO3 26.8 mmol/L (21.0-27.0)
[2023-10-23] MEDS: FLUCONAZOLE 200 mg/ NS 100 ML IV SCH (14:03)
[2023-10-23] MEDS: ALBUMIN HUMAN 25% 50 ML IV SCH (14:29)
[2023-10-23] MEDS: FUROSEMIDE 20 MG/2 ML VIAL IVP ONE (14:31)
[2023-10-23] MEDS: MIDODRINE HCL 5 MG TABLET (PROAMATINE) PO SCH (22:10)
[2023-10-24] VITALS (32 sets, daily range): BP systolic 89–138; PULSE 53–66; RESP 9–28; TEMP 98.2–98.9; O2SAT 92–99
[2023-10-24 06:18] LABS: BASOPHILS % (AUTO) 0.1 % (0.0-2.0); EOSINOPHILS # (AUTO) 0.3 K/uL (0.0-0.4); EOSINOPHILS % (AUTO) 2.6 % (0.0-4.0); HEMATOCRIT 35.7 % (36-48); HEMOGLOBIN 11.3 g/dL (12.0-16.0); LYMPHOCYTES # (AUTO) 0.8 K/uL (1.0-5.5); LYMPHOCYTES % (AUTO) 7.4 % (20.5-51.5); MEAN CORPUSCULAR HEMOGLOBIN 26 pg (27-31); MEAN CORPUSCULAR HGB CONC 32 % (32-36); MEAN CORPUSCULAR VOLUME 82 fL (79.0-98.0); MONOCYTES # (AUTO) 1.3 K/uL (0.0-1.0); MONOCYTES % (AUTO) 12.2 % (1.7-9.3); NEUTROPHILS # (AUTO) 8.3 K/uL (1.8-7.7); NEUTROPHILS % (AUTO) 77.7 % (40.0-70.0); PLATELET COUNT (AUTO) 172 K/uL (130-430); RED BLOOD CELL COUNT(AUTO) 4.34 MIL/uL (4.2-6.2); RED CELL DISTRIBUTION WIDTH 17.8 % (9.0-15.0); WHITE BLOOD COUNT (AUTO) 10.6 K/uL (4.8-10.8)
[2023-10-24 06:22] LABS: ALBUMIN 2.7 g/dL (3.4-4.8); CALCIUM 7.3 mg/dL (8.4-11.0); CREATININE 1.52 mg/dL (0.55-1.30); POTASSIUM 3.7 mmol/L (3.5-5.1); TOTAL BILIRUBIN 1.9 mg/dL (0.0-1.0); TOTAL PROTEIN, SERUM 5.6 g/dL (6.4-8.3)
[2023-10-24 14:19] LABS: ABG O2 SAT% ESTIMATE 98.2 % (94.0-100.0); ALLEN'S TEST POSITIVE (P); BLOOD GAS HCO3 24.9 mmol/L (21.0-27.0); BLOOD GAS PCO2 41.3 mmHg (35.0-45.0); BLOOD GAS PH 7.398 (7.350-7.450); BLOOD GAS PO2 115.1 mmHg (75.0-100.0)
[2023-10-24] MEDS: MAGNESIUM SULFATE/D5W 100 ML IV ONE (21:56)
[2023-10-24] MEDS: FUROSEMIDE 40 MG/4 ML VIAL ONE (22:00)
[2023-10-25] VITALS (32 sets, daily range): BP systolic 75–145; PULSE 62–81; RESP 14–31; TEMP 97.8–98.6; O2SAT 88–100
[2023-10-25 05:58] LABS: BASOPHILS # (AUTO) 0.1 K/uL (0.0-0.2); BASOPHILS % (AUTO) 0.4 % (0.0-2.0); EOSINOPHILS # (AUTO) 0.3 K/uL (0.0-0.4); EOSINOPHILS % (AUTO) 1.4 % (0.0-4.0); HEMATOCRIT 39.7 % (36-48); HEMOGLOBIN 12.4 g/dL (12.0-16.0); LYMPHOCYTES # (AUTO) 0.8 K/uL (1.0-5.5); LYMPHOCYTES % (AUTO) 4.2 % (20.5-51.5); MEAN CORPUSCULAR HEMOGLOBIN 26 pg (27-31); MEAN CORPUSCULAR HGB CONC 31 % (32-36); MEAN CORPUSCULAR VOLUME 83 fL (79.0-98.0); MONOCYTES # (AUTO) 1.7 K/uL (0.0-1.0); MONOCYTES % (AUTO) 8.8 % (1.7-9.3); NEUTROPHILS # (AUTO) 16.6 K/uL (1.8-7.7); NEUTROPHILS % (AUTO) 85.2 % (40.0-70.0); PLATELET COUNT (AUTO) 217 K/uL (130-430); RED BLOOD CELL COUNT(AUTO) 4.78 MIL/uL (4.2-6.2); RED CELL DISTRIBUTION WIDTH 17.4 % (9.0-15.0); WHITE BLOOD COUNT (AUTO) 19.5 K/uL (4.8-10.8)
[2023-10-25 06:19] LABS: ALBUMIN 2.3 g/dL (3.4-4.8); CALCIUM 7.9 mg/dL (8.4-11.0); CREATININE 1.64 mg/dL (0.55-1.30); PHOSPHORUS 2.8 mg/dL (2.7-4.5); POTASSIUM 3.3 mmol/L (3.5-5.1); TOTAL PROTEIN, SERUM 5.5 g/dL (6.4-8.3)
[2023-10-25 06:59] LABS: TOTAL BILIRUBIN 3.1 mg/dL (0.0-1.0)
[2023-10-25] MEDS: FUROSEMIDE 40 MG/4 ML VIAL ONE (08:36)
[2023-10-25 12:05] LABS: ABG O2 SAT% ESTIMATE 93.6 % (94.0-100.0); BLOOD GAS BASE EXCESS 0.9 mmol/L (-3.0-3.0); BLOOD GAS HCO3 25.8 mmol/L (21.0-27.0); BLOOD GAS PCO2 42.1 mmHg (35.0-45.0); BLOOD GAS PH 7.405 (7.350-7.450); BLOOD GAS PO2 67.9 mmHg (75.0-100.0)
[2023-10-25 12:11] LABS: ALLEN'S TEST POSITIVE (P)
[2023-10-25] MEDS: ALBUMIN HUMAN 25% 50 ML IV SCH (12:44)
[2023-10-25] MEDS ORDERED: LORazepam 2 MG/ML VIAL IM PRN (12:45)
[2023-10-25] MEDS: VANCOMYCIN HCL 1,000 MG in NS 250 ML IV SCH (16:37)
[2023-10-25] MEDS: QUEtiapine FUMARATE 25 MG TABLET PO SCH (20:39)
[2023-10-25] MEDS: metroNIDAZOLE 500 mg/NS 100 ML IV SCH (20:40)
[2023-10-26] VITALS (28 sets, daily range): BP systolic 82–147; PULSE 68–110; RESP 12–30; TEMP 98–98.6; O2SAT 94–100
[2023-10-26 05:58] LABS: BASOPHILS # (AUTO) 0.1 K/uL (0.0-0.2); BASOPHILS % (AUTO) 0.5 % (0.0-2.0); EOSINOPHILS # (AUTO) 0.1 K/uL (0.0-0.4); EOSINOPHILS % (AUTO) 0.6 % (0.0-4.0); HEMATOCRIT 32.6 % (36-48); HEMOGLOBIN 10.3 g/dL (12.0-16.0); LYMPHOCYTES # (AUTO) 0.6 K/uL (1.0-5.5); LYMPHOCYTES % (AUTO) 4.7 % (20.5-51.5); MEAN CORPUSCULAR HEMOGLOBIN 26 pg (27-31); MEAN CORPUSCULAR HGB CONC 32 % (32-36); MEAN CORPUSCULAR VOLUME 82 fL (79.0-98.0); MONOCYTES # (AUTO) 1.3 K/uL (0.0-1.0); MONOCYTES % (AUTO) 10.6 % (1.7-9.3); NEUTROPHILS # (AUTO) 10.5 K/uL (1.8-7.7); NEUTROPHILS % (AUTO) 83.6 % (40.0-70.0); PLATELET COUNT (AUTO) 172 K/uL (130-430); RED BLOOD CELL COUNT(AUTO) 3.98 MIL/uL (4.2-6.2); RED CELL DISTRIBUTION WIDTH 17.5 % (9.0-15.0)
[2023-10-26 07:11] LABS: ALBUMIN 2.4 g/dL (3.4-4.8); CALCIUM 7.8 mg/dL (8.4-11.0); CREATININE 2.37 mg/dL (0.55-1.30); POTASSIUM 3.2 mmol/L (3.5-5.1); TOTAL PROTEIN, SERUM 5.7 g/dL (6.4-8.3)
[2023-10-26 07:51] LABS: TOTAL BILIRUBIN 5.8 mg/dL (0.0-1.0)
[2023-10-26 08:24] LABS: WHITE BLOOD COUNT (AUTO) 12.6 K/uL (4.8-10.8)
[2023-10-26] MEDS: KCL 40 mEq in 100 mL (PREMIX) 100 ML IV PRN (08:36)
[2023-10-26 10:02] LABS: BLOOD GAS BASE EXCESS 1.2 mmol/L (-3.0-3.0); BLOOD GAS HCO3 27.2 mmol/L (21.0-27.0); BLOOD GAS PCO2 48.2 mmHg (35.0-45.0)
[2023-10-26 10:04] LABS: ALLEN'S TEST POSITIVE (P)
[2023-10-26] MEDS: FUROSEMIDE 40 MG/4 ML VIAL IVP ONE (10:21)
[2023-10-26] MEDS: FUROSEMIDE 40 MG/4 ML VIAL ONE (10:22)
[2023-10-26] MEDS ORDERED: FUROSEMIDE 40 MG/4 ML VIAL IVP SCH (15:00)
[2023-10-26] MEDS: ALBUMIN HUMAN 25% 100 ML IV SCH (20:26)
[2023-10-26] MEDS: FUROSEMIDE 40 MG/4 ML VIAL IVP SCH (20:31)
[2023-10-27] VITALS (32 sets, daily range): BP systolic 83–147; PULSE 65–93; RESP 12–31; TEMP 97.5–98.3; O2SAT 88–99
[2023-10-27 05:29] LABS: BASOPHILS % (AUTO) 0.5 % (0.0-2.0); EOSINOPHILS # (AUTO) 0.1 K/uL (0.0-0.4); EOSINOPHILS % (AUTO) 0.6 % (0.0-4.0); HEMATOCRIT 31.6 % (36-48); HEMOGLOBIN 9.8 g/dL (12.0-16.0); LYMPHOCYTES # (AUTO) 0.5 K/uL (1.0-5.5); LYMPHOCYTES % (AUTO) 5.3 % (20.5-51.5); MEAN CORPUSCULAR HEMOGLOBIN 26 pg (27-31); MEAN CORPUSCULAR HGB CONC 31 % (32-36); MEAN CORPUSCULAR VOLUME 83 fL (79.0-98.0); MONOCYTES # (AUTO) 0.9 K/uL (0.0-1.0); MONOCYTES % (AUTO) 9.6 % (1.7-9.3); NEUTROPHILS # (AUTO) 7.9 K/uL (1.8-7.7); PLATELET COUNT (AUTO) 170 K/uL (130-430); RED CELL DISTRIBUTION WIDTH 18.8 % (9.0-15.0); WHITE BLOOD COUNT (AUTO) 9.4 K/uL (4.8-10.8)
[2023-10-27 06:01] LABS: ALBUMIN 2.3 g/dL (3.4-4.8); CALCIUM 8.3 mg/dL (8.4-11.0); CREATININE 3.58 mg/dL (0.55-1.30); POTASSIUM 4.5 mmol/L (3.5-5.1); TOTAL BILIRUBIN 4.9 mg/dL (0.0-1.0); TOTAL PROTEIN, SERUM 5.5 g/dL (6.4-8.3); VANCOMYCIN,RANDOM 23.6 ug/mL (20.0-30.0)
[2023-10-27] MEDS ORDERED: DOPamine PREMIX 250 ML IV PRN (14:45)
[2023-10-27] MEDS: DOPamine PREMIX 250 ML IV PRN (15:21)
[2023-10-27] MEDS: ACETYLCYSTEINE 20% 4 ML VIAL (RT) INH SCH (19:26)
[2023-10-27] MEDS: METHYLPREDNISOLONE SOD SUCC 40 MG/ML VIAL IVP SCH (20:48)
[2023-10-28] VITALS (33 sets, daily range): BP systolic 93–151; PULSE 65–79; RESP 15–34; TEMP 97–97.6; O2SAT 88–96
[2023-10-28 05:37] LABS: BASOPHILS % (AUTO) 0.1 % (0.0-2.0); EOSINOPHILS % (AUTO) 0.4 % (0.0-4.0); HEMATOCRIT 32.5 % (36-48); LYMPHOCYTES # (AUTO) 0.3 K/uL (1.0-5.5); LYMPHOCYTES % (AUTO) 2.9 % (20.5-51.5); MEAN CORPUSCULAR HEMOGLOBIN 26 pg (27-31); MEAN CORPUSCULAR HGB CONC 31 % (32-36); MEAN CORPUSCULAR VOLUME 83 fL (79.0-98.0); MONOCYTES # (AUTO) 0.4 K/uL (0.0-1.0); MONOCYTES % (AUTO) 4.2 % (1.7-9.3); NEUTROPHILS % (AUTO) 92.4 % (40.0-70.0); PLATELET COUNT (AUTO) 198 K/uL (130-430); RED CELL DISTRIBUTION WIDTH 19.1 % (9.0-15.0); WHITE BLOOD COUNT (AUTO) 8.7 K/uL (4.8-10.8)
[2023-10-28 06:05] LABS: ALBUMIN 2.4 g/dL (3.4-4.8); CALCIUM 8.8 mg/dL (8.4-11.0); CREATININE 4.19 mg/dL (0.55-1.30); TOTAL BILIRUBIN 3.8 mg/dL (0.0-1.0); TOTAL PROTEIN, SERUM 5.7 g/dL (6.4-8.3)
[2023-10-28] MEDS ORDERED: METOCLOPRAMIDE HCL 10 MG/2 ML VIAL IVP PRN (11:30)
[2023-10-28] MEDS: PANTOPRAZOLE SODIUM 40 MG/VIAL (PROTONIX) IVP ONE (11:49)
[2023-10-28] MEDS: METOCLOPRAMIDE HCL 10 MG/2 ML VIAL IVP SCH (11:50)
[2023-10-28] MEDS: MINERAL OIL 133 ML ENEMA RC ONE (11:50)
[2023-10-28] MEDS ORDERED: RIVAROXABAN 15 MG TABLET PO SCH (18:00)
[2023-10-28] MEDS: PANTOPRAZOLE SODIUM 40 MG/VIAL (PROTONIX) IVP SCH (20:24)
[2023-10-29] VITALS (33 sets, daily range): BP systolic 90–164; PULSE 61–79; RESP 13–53; TEMP 96.7–97.4; O2SAT 76–95
[2023-10-29 05:39] LABS: BASOPHILS % (AUTO) 0.1 % (0.0-2.0); EOSINOPHILS % (AUTO) 0.1 % (0.0-4.0); HEMATOCRIT 26.4 % (36-48); HEMOGLOBIN 8.5 g/dL (12.0-16.0); LYMPHOCYTES # (AUTO) 0.2 K/uL (1.0-5.5); LYMPHOCYTES % (AUTO) 3.1 % (20.5-51.5); MEAN CORPUSCULAR HEMOGLOBIN 27 pg (27-31); MEAN CORPUSCULAR HGB CONC 32 % (32-36); MEAN CORPUSCULAR VOLUME 82 fL (79.0-98.0); MONOCYTES # (AUTO) 0.4 K/uL (0.0-1.0); MONOCYTES % (AUTO) 6.1 % (1.7-9.3); NEUTROPHILS # (AUTO) 6.6 K/uL (1.8-7.7); NEUTROPHILS % (AUTO) 90.6 % (40.0-70.0); PLATELET COUNT (AUTO) 159 K/uL (130-430); RED BLOOD CELL COUNT(AUTO) 3.21 MIL/uL (4.2-6.2); RED CELL DISTRIBUTION WIDTH 18.9 % (9.0-15.0); WHITE BLOOD COUNT (AUTO) 7.3 K/uL (4.8-10.8)
[2023-10-29 06:17] LABS: ALBUMIN 2.1 g/dL (3.4-4.8); CALCIUM 8.5 mg/dL (8.4-11.0); CREATININE 4.64 mg/dL (0.55-1.30); POTASSIUM 4.4 mmol/L (3.5-5.1); TOTAL BILIRUBIN 2.9 mg/dL (0.0-1.0); TOTAL PROTEIN, SERUM 5.4 g/dL (6.4-8.3)
[2023-10-29] MEDS: MINERAL OIL 30 ML UDC PO ONE (10:11)
[2023-10-29] MEDS ORDERED: QUEtiapine FUMARATE 25 MG TABLET ONE (22:15)
[2023-10-30] VITALS (13 sets, daily range): BP systolic 87–151; PULSE 63–81; RESP 17–28; TEMP 97–97.8; O2SAT 92–96
[2023-10-30 05:28] LABS: EOSINOPHILS % (AUTO) 0.1 % (0.0-4.0); HEMATOCRIT 29.7 % (36-48); HEMOGLOBIN 9.6 g/dL (12.0-16.0); LYMPHOCYTES # (AUTO) 0.3 K/uL (1.0-5.5); LYMPHOCYTES % (AUTO) 4.6 % (20.5-51.5); MEAN CORPUSCULAR HEMOGLOBIN 27 pg (27-31); MEAN CORPUSCULAR HGB CONC 32 % (32-36); MEAN CORPUSCULAR VOLUME 82 fL (79.0-98.0); MONOCYTES # (AUTO) 0.7 K/uL (0.0-1.0); NEUTROPHILS # (AUTO) 6.3 K/uL (1.8-7.7); NEUTROPHILS % (AUTO) 86.3 % (40.0-70.0); PLATELET COUNT (AUTO) 203 K/uL (130-430); RED BLOOD CELL COUNT(AUTO) 3.62 MIL/uL (4.2-6.2); WHITE BLOOD COUNT (AUTO) 7.3 K/uL (4.8-10.8)
[2023-10-30 05:51] LABS: ALBUMIN 2.2 g/dL (3.4-4.8); CREATININE 5.59 mg/dL (0.55-1.30); POTASSIUM 4.8 mmol/L (3.5-5.1); TOTAL BILIRUBIN 2.8 mg/dL (0.0-1.0); TOTAL PROTEIN, SERUM 5.5 g/dL (6.4-8.3)
[2023-10-30] MEDS ORDERED: HEPARIN SODIUM,PORCINE 5,000 UNITS/ML VIAL MC SCH (08:00)
[2023-10-30] MEDS ORDERED: ROCURONIUM BROMIDE 10 MG/ML (ZEMURON) ONE (10:20)
[2023-10-30] MEDS ORDERED: EPINEPHrine JECT 0.1 MG/ML SYR ONE ×2 (10:35→10:40)
[2023-10-30] MEDS ORDERED: CALCIUM CHLORIDE 1 GM/10 ML DISP.SYRIN (14 mEq Ca++/SYR) ONE (10:35)
[2023-10-30] MEDS ORDERED: SODIUM BICARBONATE 8.4% JECT 50 MEQ/50 ML SYRINGE ONE (10:40)
== END 2023-10-30 17:10 | DRG 130 ==
LOC: SED 14:03 → SIC 16:06
PROVIDERS: ADMIT Preventive Medicine Preventive Medicine/Occupational Environmental Medicine; ATTEND Family Medicine
PROC: 0BH17EZ Insertion of Endotracheal Airway into Trachea, Via Natural or Artificial Opening (ICD-10-PCS; 2023-10-16)
PROC: 02HV33Z Insertion of Infusion Device into Superior Vena Cava, Percutaneous Approach (ICD-10-PCS; 2023-10-16)
PROC: B548ZZA Ultrasonography of Superior Vena Cava, Guidance (ICD-10-PCS; 2023-10-16)
PROC: 5A1955Z Respiratory Ventilation, Greater than 96 Consecutive Hours (ICD-10-PCS; principal; 2023-10-17)
PROC: 5A09357 Assistance with Respiratory Ventilation, Less than 24 Consecutive Hours, Continuous Positive Airway Pressure (ICD-10-PCS; 2023-10-25)
PROC: 5A1935Z Respiratory Ventilation, Less than 24 Consecutive Hours (ICD-10-PCS; 2023-10-26)
PROC: 5A09357 Assistance with Respiratory Ventilation, Less than 24 Consecutive Hours, Continuous Positive Airway Pressure (ICD-10-PCS; 2023-10-26)
PROC: 5A1935Z Respiratory Ventilation, Less than 24 Consecutive Hours (ICD-10-PCS; 2023-10-26)
PROC: 5A09357 Assistance with Respiratory Ventilation, Less than 24 Consecutive Hours, Continuous Positive Airway Pressure (ICD-10-PCS; 2023-10-27)
PROC: 0D9670Z Drainage of Stomach with Drainage Device, Via Natural or Artificial Opening (ICD-10-PCS; 2023-10-28)
PROC: 5A09357 Assistance with Respiratory Ventilation, Less than 24 Consecutive Hours, Continuous Positive Airway Pressure (ICD-10-PCS; 2023-10-28)
PROC: 5A0935A Assistance with Respiratory Ventilation, Less than 24 Consecutive Hours, High Flow/Velocity Cannula (ICD-10-PCS; 2023-10-28)
PROC: 5A09357 Assistance with Respiratory Ventilation, Less than 24 Consecutive Hours, Continuous Positive Airway Pressure (ICD-10-PCS; 2023-10-29)
PROC: 5A0935A Assistance with Respiratory Ventilation, Less than 24 Consecutive Hours, High Flow/Velocity Cannula (ICD-10-PCS; 2023-10-29)
PROC: 0BH17EZ Insertion of Endotracheal Airway into Trachea, Via Natural or Artificial Opening (ICD-10-PCS; 2023-10-30)
PROC: 5A12012 Performance of Cardiac Output, Single, Manual (ICD-10-PCS; 2023-10-30)
PROC: 05HN33Z Insertion of Infusion Device into Left Internal Jugular Vein, Percutaneous Approach (ICD-10-PCS; 2023-10-30)
PROC: B544ZZA Ultrasonography of Left Jugular Veins, Guidance (ICD-10-PCS; 2023-10-30)
PROC: 5A09357 Assistance with Respiratory Ventilation, Less than 24 Consecutive Hours, Continuous Positive Airway Pressure (ICD-10-PCS; 2023-10-30)
DX: J96.01 Acute respiratory failure with hypoxia (principal); I50.23 Acute on chronic systolic (congestive) heart failure; A41.9 Sepsis, unspecified organism; E43 Unspecified severe protein-calorie malnutrition; N17.9 Acute kidney failure, unspecified; E87.29 Other acidosis; J18.9 Pneumonia, unspecified organism; E88.09 Other disorders of plasma-protein metabolism, not elsewhere classified; J96.02 Acute respiratory failure with hypercapnia; I13.0 Hypertensive heart and chronic kidney disease with heart failure and stage 1 through stage 4 chronic kidney disease, or unspecified chronic kidney disease; J44.0 Chronic obstructive pulmonary disease with (acute) lower respiratory infection; K56.7 Ileus, unspecified; I48.0 Paroxysmal atrial fibrillation; L03.115 Cellulitis of right lower limb; L03.116 Cellulitis of left lower limb; Z20.822 Contact with and (suspected) exposure to COVID-19; I25.10 Atherosclerotic heart disease of native coronary artery without angina pectoris; R13.10 Dysphagia, unspecified; I46.9 Cardiac arrest, cause unspecified; E78.5 Hyperlipidemia, unspecified; I25.5 Ischemic cardiomyopathy; E87.5 Hyperkalemia; E66.01 Morbid (severe) obesity due to excess calories; E11.51 Type 2 diabetes mellitus with diabetic peripheral angiopathy without gangrene; E87.6 Hypokalemia; E11.22 Type 2 diabetes mellitus with diabetic chronic kidney disease; I87.8 Other specified disorders of veins; N18.30 Chronic kidney disease, stage 3 unspecified; Z95.810 Presence of automatic (implantable) cardiac defibrillator; Z88.0 Allergy status to penicillin; Z86.718 Personal history of other venous thrombosis and embolism; Z79.01 Long term (current) use of anticoagulants; Z79.899 Other long term (current) drug therapy; I25.2 Old myocardial infarction; Z68.37 Body mass index [BMI] 37.0-37.9, adult; Z87.891 Personal history of nicotine dependence
CPT/HCPCS: 36415; 36600; 70450-TC; 71045; 74018; 76376; 76700; 76770; 80048; 80053; 80076; 80202; 81000; 81001; 81015; 82803; 82948; 82962; 83037; 83605; 83735; 83880; 83935; 84100; 84302; 84443; 84484; 85007; 85025; 85027; 85610; 87040; 87070; 87081; 87086; 87205; 92610-GN; 92950; 93005; 93306; 93923; 94002; 94003; 94640; 94660; 99291; C9113; J0171; J0282; J0692; J1030; J1265; J1450; J1644; J1815; J1940; J2270; J2704; J2765; J3370; J3480; J3490; J7050; J7060; J7608; J7626; P9046